=== PATIENT | male | born 1965 | race Caucasian/White ===

== ENCOUNTER → 2023-01-23 12:21 | Outpatient (CLI) | payer OTHER, SELFPAY ==
--- NOTE | ~2023-01-23 | CT_ITS ---
CT scan of the Neck Technique: 2.5 mm axial scans were obtained through the neck after intravenous administration of 75 c c Omnipaque 350. Coronal and sagittal reconstructions of the neck were obtained. Dose reduction techn ique was used on this scan by utilizing automated exposure control and iterative reconstruction techn ique. The dose-length product (DLP) was 482.70 mGy-cm. Clinical History: Left neck mass Findings: There is somewhat ill-defined masslike enlargement of the left palatine tonsil, measuring approximate ly 2.5 x 1.1 x 2.5 cm. There is associated left cervical lymphadenopathy, predominantly level 2, with largest node measuring 1.9 x 2.0 x 3.3 cm. There are additional enlarged, centrally hypodense lymph nodes, both superiorly (axial image 49), and slightly posterior/inferior (axial image 56), which coul d reflect centrally necrotic lymph nodes. Parotid and submandibular glands are unremarkable. Parapharyngeal fat is preserved bilaterally. The thyroid gland appears normal. Images of the lung apices reveal no abnormalities. Impression: Left palatine tonsillar mass measuring approximately 2.5 x 1.1 x 2.5 cm. This is suspicious for malig matthew. Left cervical lymphadenopathy, predominantly level 2, as detailed above, suspicious for metastatic ly mphadenopathy. Consider tissue sampling to establish a histologic diagnosis. PET CT should also be considered to janes luate for any smaller hypermetabolic lymph nodes, if this will affect management. Reviewed, dictated and finalized at [facility]. Impression: Left palatine tonsillar mass measuring approximately 2.5 x 1.1 x 2.5 cm. This i s suspicious for malignancy. Left cervical lymphadenopathy, predominantly level 2, as detailed above, suspic ious for metastatic lymphadenopathy. Consider tissue sampling to establish a histologic diagnosis. PET CT should als o be considered to evaluate for any smaller hypermetabolic lymph nodes, if this will affect management.
== END ==
PROVIDERS: PCP Internal Medicine; Visit Provider Internal Medicine
DX: R22.1 Localized swelling, mass and lump, neck (principal)
CPT/HCPCS: 70491; Q9967

== ENCOUNTER 2023-03-07 12:37 | Outpatient (CLI) | payer OTHER, SELFPAY ==
[2023-03-07 12:51] LABS: Basophils Absolute Auto 0.1 K/mm3 (0.0-0.1); Basophils Percent Auto 0.8 % (0.2-1.2); Eosinophils Absolute Auto 0.3 K/mm3 (0-0.3); Eosinophils Percent Auto 3.1 % (0-4.4); Hematocrit 47.4 % (42.0-52.0); Hemoglobin 15.8 g/dL (14.0-18.0); Immature Granulocyte Absolute 0.02 K/mm3 (0.00-0.031); Immature Granulocyte Percent A 0.2 % (0-0.5); Lymphocytes Percent Auto 19.8 % (18.3-44.2); Mean Corpuscular HGB Conc 33.3 g/dl (32-36); Mean Platelet Volume 10.1 fl (7.4-10.4); Monocytes Absolute Auto 0.6 K/mm3 (0.1-0.6); Monocytes Percent Auto 7.2 % (2.6-8.5); Neutrophils Absolute Auto 5.9 K/mm3 (1.3-6.7); Neutrophils Percent Auto 68.9 % (45.5-73.1); Platelet Count Result 225 k/mm3 (150-375); Red Blood Count 4.94 M/mm3 (4.6-6.20); Red Cell Distribution Width 11.2 % (11.5-14.5); White Blood Count 8.6 K/mm3 (4.5-10.0)
[2023-03-07 13:39] LABS: Alanine Aminotransferase 22 U/L (6-50); Albumin Level 4.4 g/dL (3.5-5.1); Alkaline Phosphatase 119 U/L (38-126); Anion Gap 2 mmol/L (8-16); Aspartate Amino Transferase 27 U/L (17-59); Bilirubin,Total 0.8 mg/dL (0.2-1.3); Blood Urea Nitrogen 10 mg/dL (9-20); Calcium 9.5 mg/dL (8.4-10.2); Carbon Dioxide 27 mmol/L (22-30); Chloride 106 mmol/L (98-107); Estimated Glomerular Filt Rate > 60; Glucose 100 mg/dL (65-110); Potassium 4.2 mmol/L (3.4-5.0); Sodium 135 mmol/L (137-145)
== END 2023-03-07 12:38 | disposition home or self-care (01) ==
LOC: ANHLAB 12:39
PROVIDERS: PCP Internal Medicine; Visit Provider Internal Medicine Hematology & Oncology
DX: C09.9 Malignant neoplasm of tonsil, unspecified (principal)
CPT/HCPCS: 36415; 80053; 85025

== ENCOUNTER 2023-03-21 08:01 | Outpatient (CLI) | payer OTHER, SELFPAY ==
--- NOTE | ~2023-03-21 | PE_ITS ---
EXAMINATION: PET skull to mid thigh DATE: 03/21/2023 10:07 INDICATION: Neoplasm of uncertain behavior of the tonsil TECHNIQUE: Blood glucose level was 106 mg/dL. 7.446 mCi of 18-fluorodeoxyglucose (18-FDG) was adminis tered i.v. Low dose computed tomography (CT) images were acquired from the base of the brain to the p roximal thighs for attenuation correction and anatomic localization. Positron emission tomography (PE T) images were acquired in the same distribution beginning 56 minutes after injection. Images includi ng fused PET/CT images were reconstructed in axial, coronal, and sagittal planes. Automated exposure control technique was employed. The dose-length product was 553.97mGy-cm. COMPARISON: Neck CT dated 01/23/2023 FINDINGS: Head/neck: There is asymmetric nodular thickening of the and posterolateral left pharyngeal wall in the region o f the left palatine tonsil with corresponding increased FDG uptake with maximal SUV of 11.9 concernin g for malignancy. There are 3 enlarged FDG avid level 2 jugular lymph nodes, the most caudal measurin g 2.1 x 2.1 mm with maximal SUV of 13.1. The 2 more cephalad enlarged lymph nodes with lower degree o f peripheral FDG uptake located posterior to the angle of the mandible which measure 2.6 x 1.6 cm wit h maximal SUV of 11.1 and 2.4 x 1.6 cm with maximal SUV of 5.1. There is decreased attenuation centra lly where there is significantly less FDG uptake likely reflecting central necrosis. Chest: Subtle approximately 1 cm focus of groundglass opacity in the apical segment of the left upper lobe w ith nearly indiscernible FDG activity. Large pneumatocele at the base of the left lower lobe. No othe r suspicious pulmonary nodules, pulmonary edema or pleural effusion. Heart size is normal. No pericar dial effusion. Thoracic aorta is normal in caliber. No pathologically enlarged or FDG avid thoracic l ymphadenopathy. Abdomen/pelvis/proximal thighs: Physiologic renal accumulation and excretion of FDG activity in the kidneys, bladder and along portio ns of ureters. 3.7 cm exophytic cyst at the posterior left kidney. Diffuse bladder wall thickening. M ild prostatomegaly. Normal degree and heterogenous pattern of increased uptake throughout the liver w ithout radiologic correlate or dominant FDG avid lesion. The gallbladder, pancreas, spleen and bilate ral adrenal glands are normal. Mild uptake scattered throughout the bowels without radiologic correla te, also likely physiologic. No other abnormal foci of increased FDG uptake or pathologically enlarge d lymphadenopathy in the abdomen, pelvis or proximal thighs. Musculoskeletal: Sclerotic bone islands without FDG uptake at L2 and at the left posterior iliac spine. L4 superior en dplate compression fracture. No other suspicious lytic, blastic or FDG avid bone lesions. IMPRESSION: 1. FDG avid asymmetric soft tissue thickening at the left posterolateral pharyngeal wall in the regio n of the palatine tonsil suspicious for primary malignancy. 2. Three enlarged and FDG avid likely metastatic level 2 left jugular chain lymph nodes, 2 with sugge stion of central necrosis. 3. No other evident metastatic disease in the chest, abdomen or pelvis. 4. Indeterminate 1 cm round glass opacity at the left apex without significant increased FDG activity is most likely infectious/inflammatory in etiology although would recommend 3 month follow-up noncon trast chest CT. 5. Diffuse mild bladder wall thickening which could be due to chronic outlet obstruction from the mil dly enlarged prostate or due to cystitis either acute or chronic. Correlate with urinalysis. Reviewed, dictated and finalized at location [facility]. IMPRESSION: 1. FDG avid asymmetric soft tissue thickening at the left posterolateral pharyn geal wall in the region of the
[2023-03-21 08:31] LABS: Glucose Point of Care 106 mg/dl (65-105)
== END 2023-03-21 08:02 | disposition home or self-care (01) ==
PROVIDERS: PCP Internal Medicine; Visit Provider Otolaryngology
DX: D37.05 Neoplasm of uncertain behavior of pharynx (principal)
CPT/HCPCS: 78815; A9552

== ENCOUNTER 2023-05-07 10:18 | Observation (INO) | payer OTHER, SELFPAY ==
[2023-05-07] VITALS (11 sets, daily range): BP systolic 141–155; BP diastolic 86–106; PULSE 62–95; RESP 15–20; TEMP 36.1–37.1; O2SAT 96–99; BMI 21.3
--- NOTE | ~2023-05-07 | CT_ITS ---
EXAMINATION: CT soft tissue neck wo con DATE: 05/07/2023 14:15 INDICATION: Dysphagia. TECHNIQUE: Computed tomography (CT) of the neck was performed without intravenous contrast. Automated exposure control and iterative reconstruction technique were employed. The dose-length product was 6 05.37 mGy-cm. COMPARISON: CT neck 01/23/2023 FINDINGS: Again seen is a small groundglass opacity in right upper lobe. Again seen is a small ground glass opacity in left upper lobe. Again seen are nodules in right upper lobe measuring up to 4 mm. Th corbin findings are likely benign. There are calcifications in the palatine tonsils. Again seen is left high internal jugular chain lymphadenopathy. For example, a left internal jugular chain node measures 14 x 15 mm, decreased from 20 x 20 mm on 01/23/2023. There are nodules in the thyroid measuring up to 12 mm, likely not clinically significant. There is mild mucosal thickening in the paranasal sinuses. There is mild cervical spondylosis. There is mild chronic height loss of multiple vertebral bodies. IMPRESSION: 1. Left internal jugular chain lymphadenopathy with interval improvement, consistent with metastatic disease. Reviewed, dictated and finalized at location [facility]. IMPRESSION: 1. Left internal jugular chain lymphadenopathy with interval improvement, consi stent with metastatic disease.
[2023-05-07 11:15] LABS: Basophils Percent Auto 0.7 % (0.2-1.2); Eosinophils Absolute Auto 0.1 K/mm3 (0-0.3); Hematocrit 49.9 % (42.0-52.0); Hemoglobin 15.5 g/dL (14.0-18.0); Immature Granulocyte Absolute 0.02 K/mm3 (0.00-0.031); Immature Granulocyte Percent A 0.3 % (0-0.5); Lymphocytes Absolute Auto 0.38 K/mm3 (0.9-3.2); Lymphocytes Percent Auto 6.4 % (18.3-44.2); Mean Corpuscular HGB Conc 31.1 g/dl (32-36); Mean Corpuscular Hemoglobin 31.1 pg (26-34); Mean Corpuscular Volume 100.2 fl (80-100); Mean Platelet Volume 11.3 fl (7.4-10.4); Monocytes Absolute Auto 0.7 K/mm3 (0.1-0.6); Monocytes Percent Auto 10.9 % (2.6-8.5); Neutrophils Absolute Auto 4.8 K/mm3 (1.3-6.7); Neutrophils Percent Auto 79.7 % (45.5-73.1); Platelet Count Result 146 k/mm3 (150-375); Red Blood Count 4.98 M/mm3 (4.6-6.20); Red Cell Distribution Width 11.7 % (11.5-14.5)
[2023-05-07 11:27] LABS: Alanine Aminotransferase 70 U/L (6-50); Albumin Level 4.5 g/dL (3.5-5.1); Alkaline Phosphatase 120 U/L (38-126); Anion Gap 14 mmol/L (8-16); Aspartate Amino Transferase 34 U/L (17-59); Bilirubin,Total 0.5 mg/dL (0.2-1.3); Blood Urea Nitrogen 69 mg/dL (9-20); Calcium 9.9 mg/dL (8.4-10.2); Carbon Dioxide 22 mmol/L (22-30); Chloride 117 mmol/L (98-107); Estimated CRCL calculation 24 ml/min; Estimated Glomerular Filt Rate 22; Glucose 98 mg/dL (65-110); Lipase 155 U/L (23-300); Sodium 153 mmol/L (137-145)
--- NOTE | 2023-05-07 12:22 | ED.GENADULT ---
HPI - General Adult General Chief complaint: Unspecified Stated complaint: unable to eat and drink (chemo pt) Time Seen by Provider: 05/07/23 12:01 History of Present Illness HPI narrative: Patient is a 57-year-old male with a history of head and neck cancer undergoing chemo and radiation presenting with poor oral intake. Patient states that he has been unable to eat or drink anything for some time now. States that he has had 19 of 35 radiation treatments. States that he has been increasingly weak and intermittently nauseated. He is unable to take ODT Zofran as he does not have enough saliva to dissolve it. Patient states that he went to the infusion center yesterday for a liter of fluids but he continues to struggle with p.o. intake. He denies any new pain or infectious symptoms. Related Data Home Medications Medication Instructions Recorded Confirmed albuterol sulfate 90 mcg/actuation 2 puff inhalation QID PRN Wheezing 03/15/23 05/07/23 aerosol inhaler (ProAir HFA) budesonide-formoterol HFA 160 2 puff inhalation Q12H 03/15/23 05/07/23 mcg-4.5 mcg/actuation aerosol inhaler (Symbicort) Allergies Allergy/AdvReac Type Severity Reaction Status Date / Time No Known Allergies Allergy Verified 05/07/23 16:20 Review of Systems Review of Systems: All systems reviewed & are unremarkable except as noted in HPI and below PMFSH Past Medical History Medical History (Updated 05/08/23 @ 13:01 by Chelsey Hall MD) Anorexia Asthma Social History Social History (Updated 05/07/23 @ 21:10 by Verónica Gagnon APRN) Social History: Currently lives at home alone. Surrogate decision maker - brother, Tye Spears. Smoking status: Never smoker Smokeless tobacco user: chewing tobacco Second hand tobacco smoke exposure: Yes Additional smoking assessment comments: Chewing Tobacco - 40+ Yrs, cessation last week as of 05/07/23 Alcohol intake: former Substance use: never Lack of Transportation: No Lack of Food: Never True Current Housing: I Have Housing Concerned About Future Housing: No Difficulty Paying Gas/Electric Bills: No Difficulty Paying for Meds: No Currently Unemployed: No Education: High School Diploma/GED Difficulty w/ Childcare or Family Care: No Living arrangements: alone Spiritual care concerns: No Exam Narrative: GENERAL: Nontoxic and in no acute distress. Pleasant and cooperative HEAD: Normocephalic, atraumatic. EYES: PERRLA and EOMI. ENT: Nares clear, no rhinorrhea or epistaxis. Mucous membranes dry NECK: Supple. CHEST: Clear to auscultation. No respiratory distress. HEART: Regular rate and rhythm ABDOMEN: Soft, nontender, nondistended EXTREMITIES: Normal range of motion. No edema. SKIN: Warm, dry, no rash. NEURO: No focal deficits. Alert and oriented x3. PSYCH: Normal mood and affect. Course Vital Signs Vital signs: Vital Signs Temperature 98.1 F 05/07/23 10:48 Pulse Rate 95 05/07/23 10:48 Respiratory Rate 18 05/07/23 10:48 Blood Pressure 147/106 H 05/07/23 10:48 Pulse Oximetry 96 05/07/23 10:48 Oxygen Delivery Room Air 05/07/23 10:48 Temperature 97.4 F L 05/08/23 06:00 Pulse Rate 65 05/08/23 10:47 Respiratory Rate 16 05/08/23 10:47 Blood Pressure 158/83 H 05/08/23 06:00 Pulse Oximetry 97 05/08/23 06:00 Oxygen Delivery Room Air 05/07/23 20:00 Medical Decision Making [facility] Narrative Medical decision making narrative: Patient is a 57-year-old male presenting with poor oral intake. Vital stable. Exam remarkable for the above. Blood work concerning for CIARAN with elevated BUN/creatinine. 3 L of fluids have been ordered. Patient requires admission for IV hydration as well as possible PEG tube given his inability to eat or drink. Spoke with the hospitalist who is excepted him for admission. Hospitalist requested soft tissue neck which was obtained which shows no worsening metastatic disease. It actua
[2023-05-07] MEDS: ONDANSETRON INJ 4 MG/2 ML VIAL IV PUSH (12:44)
[2023-05-07] MEDS: SODIUM CHLORIDE 0.9% IV 1,000 ML 999 ML IV CONT ×3 (12:44→13:28)
--- NOTE | 2023-05-07 15:51 | ADMGEN ---
This patient, Claude Spears, was admitted to Medical Room 247-. Patient/family oriented to hospital policies and general routines including ID bracelet, bed and alarms, visiting hours, pain management, procedures, bathroom and other care routines, personal items, smoking policy, room service/diet, and visiting hours. Information on how to activate the Rapid Response Team has been discussed. Patient/Family are encouraged to report perceived risks to care and to ask questions if they do not understand what they are told or what they should do.
[2023-05-07] MEDS: DEXTROSE 5%/LACTATED RINGERS 1,000 ML 100 ML IV CONT (20:41)
--- NOTE | 2023-05-07 20:50 | PM.IMHP ---
H&P: HPI History of Present Illness Date/Time: 05/07/23 20:50 Chief Complaint: Nausea, Vomiting, Sore Throat Narrative: 57 y/o M presents here with N/V, sore throat, and decreased PO intake with PMH of tonsillar cancer, currently receiving chemo/radiation, and asthma. Patient presents here with decreased appetite, sore throat, nausea, vomiting, and poor PO intake. Symptoms associated with radiation treatments. Appetite and sore throat have been declining since radiation treatments initiated. Currently on radiation treatments and 2/3 chemo treatments. However, in the last week patient has been unable to eat or drink due to pain and dysphagia secondary to dryness. 15 lbs of weight loss in the last week. Decreased taste. Last bowel movement was 5-6 days ago. Patient was seen by Dr. Richards on 05/06 where it was recommended he be seen/treated in-patient and to facilitate PEG placement for duration of radiation treatments. He denies SOB, focal neurological deficits, or abdominal pain. Review of Systems Review of Systems: All systems reviewed & are unremarkable except as noted in HPI and below PMFSH Past Medical History Medical History (Updated 05/07/23 @ 21:11 by Verónica Gagnon APRN) Anorexia Asthma Social History Social History (Updated 05/07/23 @ 21:10 by Verónica Gagnon APRN) Social History: Currently lives at home alone. Surrogate decision maker - brother, Tye Spears. Smoking status: Never smoker Smokeless tobacco user: chewing tobacco Second hand tobacco smoke exposure: Yes Additional smoking assessment comments: Chewing Tobacco - 40+ Yrs, cessation last week as of 05/07/23 Alcohol intake: former Substance use: never Lack of Transportation: No Lack of Food: Never True Current Housing: I Have Housing Concerned About Future Housing: No Difficulty Paying Gas/Electric Bills: No Difficulty Paying for Meds: No Currently Unemployed: No Education: High School Diploma/GED Difficulty w/ Childcare or Family Care: No Living arrangements: alone Spiritual care concerns: No Meds Home Medications and Allergies Home Medications Medication Instructions Recorded Confirmed Type albuterol sulfate 90 mcg/actuation 2 puff inhalation QID PRN Wheezing 03/15/23 05/07/23 History aerosol inhaler (ProAir HFA) budesonide-formoterol HFA 160 2 puff inhalation Q12H 03/15/23 05/07/23 History mcg-4.5 mcg/actuation aerosol inhaler (Symbicort) Allergies Allergy/AdvReac Type Severity Reaction Status Date / Time No Known Allergies Allergy Verified 05/07/23 16:20 Vital Signs Vital Signs - 24 hr 05/07/23 10:48 05/07/23 14:01 05/07/23 14:17 Temperature 98.1 F Pulse Rate 95 77 74 Respiratory Rate 18 17 19 Blood Pressure 147/106 H 155/101 H Pulse Oximetry 96 Oxygen Delivery Room Air 05/07/23 14:31 05/07/23 13:30 05/07/23 14:31 Temperature 97.0 F L Pulse Rate 72 73 74 Respiratory Rate 18 18 Blood Pressure 141/96 H 141/96 H Pulse Oximetry 98 Oxygen Delivery 05/07/23 15:01 05/07/23 15:16 05/07/23 15:31 Temperature 98.0 F 98.0 F Pulse Rate 79 78 80 Respiratory Rate 15 15 16 Blood Pressure 147/94 H 144/95 H Pulse Oximetry 98 Oxygen Delivery 05/07/23 15:50 05/07/23 15:45 Temperature 98.1 F Pulse Rate 62 Respiratory Rate 16 Blood Pressure 155/95 H Pulse Oximetry 99 Oxygen Delivery Room Air Exam Const: General: comfortable and no acute distress HENMT: Mouth: Yes dry mucous membranes Other: Oropharyngeal mucositis present.? Eyes: General: appearance normal, both eyes and all related structures Sclera: sclerae normal Pupils: Equal, round and reactive pupils present EOM: EOMs intact bilaterally Neck: Neck: supple Other: +erythema to neck, no swelling/edema. Resp: Effort & Inspection: normal respiratory effort Auscultation: clear to auscultation bilaterally Cardio: Rate: regular rate Rhythm: regul
[2023-05-08] VITALS (12 sets, daily range): BP systolic 139–177; BP diastolic 83–105; PULSE 48–77; RESP 16–22; TEMP 36.3–36.8; O2SAT 96–100; BMI 21.3
[2023-05-08 02:08] LABS: Glucose Point of Care 113 mg/dl (65-105)
[2023-05-08 05:46] LABS: Glucose Point of Care 128 mg/dl (65-105)
[2023-05-08 06:00] LABS: Alanine Aminotransferase 51 U/L (6-50); Albumin Level 3.6 g/dL (3.5-5.1); Alkaline Phosphatase 89 U/L (38-126); Anion Gap 4 mmol/L (8-16); Aspartate Amino Transferase 26 U/L (17-59); Bilirubin,Total 0.4 mg/dL (0.2-1.3); Blood Urea Nitrogen 48 mg/dL (9-20); Calcium 9.1 mg/dL (8.4-10.2); Carbon Dioxide 26 mmol/L (22-30); Chloride 121 mmol/L (98-107); Estimated CRCL calculation 33 ml/min; Estimated Glomerular Filt Rate 33; Glucose 124 mg/dL (65-110); Sodium 151 mmol/L (137-145)
[2023-05-08] MEDS: DEXTROSE 5%/LACTATED RINGERS 1,000 ML 100 ML IV CONT ×2 (07:02→20:32)
[2023-05-08 10:07] LABS: INR 1.1; Prothrombin Time 14.1 Seconds (11.1-14.7)
--- NOTE | 2023-05-08 10:38 | WPDGICN ---
Assessment and Plan Assessment and plan (1) Malignant neoplasm of tonsillar fossa: Code(s): C09.0 - Malignant neoplasm of tonsillar fossa Status: Acute Assessment and Plan: he has had cancer of the oropharynx. He has not been able to eat due to soreness in his throat and also very dry mucous membranes. Consequently he is at risk of becoming more malnourished. (2) Inadequate oral intake: Code(s): R63.8 - Other symptoms and signs concerning food and fluid intake Status: Acute Assessment and Plan: Due to inability to eat, we have been asked to insert G-tube. That will be done today. GI Consult Note Consult date/time: 05/08/23 10:38 HPI: Calude Spears is a 57 year old male who was diagnosed with esophageal cancer few months ago. He has been going on her going radiation therapy, having had about 13 treatment so far. Also is undergoing chemotherapy. Unfortunately his swallowing has gotten more difficult. He states that his mouth is very dry for the last week or so has had a very sore throat. Because of his inability to swallow and he now weight loss we are asked to see him regarding placement of a percutaneous gastrostomy tube. Review of Systems Review of Systems: All systems reviewed & are unremarkable except as noted in HPI and below PMFSH Past Medical History Medical History Anorexia Asthma Social History Social History Social History: Currently lives at home alone. Surrogate decision maker - brother, Tye Spears. Smoking status: Never smoker Smokeless tobacco user: chewing tobacco Second hand tobacco smoke exposure: Yes Additional smoking assessment comments: Chewing Tobacco - 40+ Yrs, cessation last week as of 05/07/23 Alcohol intake: former Substance use: never Lack of Transportation: No Lack of Food: Never True Current Housing: I Have Housing Concerned About Future Housing: No Difficulty Paying Gas/Electric Bills: No Difficulty Paying for Meds: No Currently Unemployed: No Education: High School Diploma/GED Difficulty w/ Childcare or Family Care: No Living arrangements: alone Spiritual care concerns: No Meds Home Medications and Allergies Home Medications Medication Instructions Recorded Confirmed Type albuterol sulfate 90 mcg/actuation 2 puff inhalation QID PRN Wheezing 03/15/23 05/07/23 History aerosol inhaler (ProAir HFA) budesonide-formoterol HFA 160 2 puff inhalation Q12H 03/15/23 05/07/23 History mcg-4.5 mcg/actuation aerosol inhaler (Symbicort) Allergies Allergy/AdvReac Type Severity Reaction Status Date / Time No Known Allergies Allergy Verified 05/08/23 13:18 Vital Signs Vital Signs - 24 hr 05/07/23 10:48 05/07/23 14:01 05/07/23 14:17 Temperature 36.7 C Pulse Rate 95 77 74 Respiratory Rate 18 17 19 Blood Pressure 147/106 H 155/101 H Pulse Oximetry 96 Oxygen Delivery Room Air 05/07/23 14:31 05/07/23 13:30 05/07/23 14:31 Temperature 36.1 C L Pulse Rate 72 73 74 Respiratory Rate 18 18 Blood Pressure 141/96 H 141/96 H Pulse Oximetry 98 Oxygen Delivery 05/07/23 15:01 05/07/23 15:16 05/07/23 15:31 Temperature 36.7 C 36.7 C Pulse Rate 79 78 80 Respiratory Rate 15 15 16 Blood Pressure 147/94 H 144/95 H Pulse Oximetry 98 Oxygen Delivery 05/07/23 15:50 05/07/23 15:45 05/07/23 20:00 Temperature 36.7 C Pulse Rate 62 62 Respiratory Rate 16 16 Blood Pressure 155/95 H Pulse Oximetry 99 99 Oxygen Delivery Room Air Room Air 05/07/23 22:31 05/08/23 06:00 Temperature 37.1 C 36.3 C L Pulse Rate 66 57 L Respiratory Rate 20 18 Blood Pressure 154/86 H 158/83 H Pulse Oximetry 99 97 Oxygen Delivery Exam Const: General: alert Orientation/consciousness: patient oriented x3 HENMT: Mouth: Yes dry mucous membranes Resp: Aus
[2023-05-08] MEDS: FLUTICASONE/SALMETEROL 115-21 MCG INHALER 1 PUFF 2 PUFF INHALATION ×2 (10:47→19:35)
[2023-05-08 12:20] LABS: Glucose Point of Care 117 mg/dl (65-105)
--- NOTE | 2023-05-08 12:31 | PM.IMPN ---
Progress Note: A&P Assessment and Plan (1) Anorexia: Code(s): R63.0 - Anorexia Status: Acute Assessment and Plan: Patient presents with 15 lb of weight loss, decreased ability to eat and drink secondary to pain, and dysphagia secondary to dry mucosa. Symptoms secondary to radiation of neck for tonsillar cancer. -chloropeptic spray PRN for sore throat -Zofran PRN IV for nausea -constipation secondary to hypovolemia - docusate and Metamucil ordered -D5LR 100 mL/hr ordered, blood glucose checks Q6H, and hypoglycemia protocols in place. -PEG tube placement 05/08/2023 by GI. Consult dietary. (2) Malignant neoplasm of tonsillar fossa: Code(s): C09.0 - Malignant neoplasm of tonsillar fossa Status: Acute Assessment and Plan: Patient is currently receiving chemo and radiation for his tonsillar cancer. Sees Dr. Bunch and Dr. Cedillo. per their progress notes, requesting evaluation for PEG. -consult GI for evaluation -supportive care for associated symptoms with chemo/radiation (3) CIARAN (acute kidney injury): Code(s): N17.9 - Acute kidney failure, unspecified Status: Acute Assessment and Plan: Patient has been unable to tolerate PO for the last week, endorses nausea and vomiting. Creatinine on 05/01 was 1.0. Now worsened 3.7. BUN currently 69. -creatinine with mild improvement post-resuscitation of 4L IV fluids, continue with maintenance fluids D5/LR 100 mL/hr. -hypernatremic - given 3L of NS in ED, reassess in AM after change in fluids -BUN and creatinine 48/2.1 -mag elevated - monitor -monitor CMP Plan Chronic Conditions -Asthma: continue home medications - albuterol PRN and Advair, Nebs ordered PRN if unable to tolerate home inhaler administration. Diet: clear liquids, NPO at midnight DVT Prophylaxis: SCDs and Lovenox 30 Code Status: Full Code Subjective Date/time seen: 05/08/23 12:31 Interval history: patient continues to have difficulty swallowing and low appetite. Plan for PEG tube placement today. Exam Narrative: GENERAL: Comfortable, no acute distress HENMT: moist mucous membranes EYES: EOM intact b/l NECK: no lymphadenopathy RESPIRATORY: clear to auscultation CARDIO: RRR GI: soft, nontender, bowel sounds present SKIN: no rashes EXTREMITIES: no edema, redness or tenderness Objective Data Vital Signs Vital Signs: Vital Signs - 24 hr 05/07/23 14:01 05/07/23 14:17 05/07/23 14:31 Temperature 97.0 F L Pulse Rate 77 74 72 Respiratory Rate 17 19 18 Blood Pressure 155/101 H 141/96 H Pulse Oximetry 98 Oxygen Delivery 05/07/23 13:30 05/07/23 14:31 05/07/23 15:01 Temperature 98.0 F Pulse Rate 73 74 79 Respiratory Rate 18 15 Blood Pressure 141/96 H 147/94 H Pulse Oximetry Oxygen Delivery 05/07/23 15:16 05/07/23 15:31 05/07/23 15:50 Temperature 98.0 F 98.1 F Pulse Rate 78 80 62 Respiratory Rate 15 16 16 Blood Pressure 144/95 H 155/95 H Pulse Oximetry 98 99 Oxygen Delivery 05/07/23 15:45 05/07/23 20:00 05/07/23 22:31 Temperature 98.8 F Pulse Rate 62 66 Respiratory Rate 16 20 Blood Pressure 154/86 H Pulse Oximetry 99 99 Oxygen Delivery Room Air Room Air 05/08/23 06:00 05/08/23 10:47 Temperature 97.4 F L Pulse Rate 57 L 65 Respiratory Rate 18 16 Blood Pressure 158/83 H Pulse Oximetry 97 Oxygen Delivery Intake/Output Intake/Output: Intake & Output 05/05/23 05/06/23 05/07/23 05/08/23 23:59 23:59 23:59 23:59 Intake Total 3000 1000 Output Total 0 800 Balance 3000 200 Meds/Results Medications: Active Medications Generic Name Dose Route Start Last Admin Trade Name Freq PRN Reason Stop Dose Admin Acetaminophen 500 mg 05/07/23 21:19 Acetaminophen 500 Mg Tablet PO Q4H PRN Mild Pain (1-4) Albuterol 2 puff 05/07/23 19:26 Albuterol Sulfate (*Sp) Aerosol 1 Puff INHALATION QID PRN Wheezing Albuterol 2.5 mg
[2023-05-08] MEDS: ceFAZolin 1 GM/NS 50 ML 1 GM/50 ML BAG IVPB (13:16)
--- NOTE | 2023-05-08 13:20 | PC.NURSE ---
To GI Lab per wheelchair, IV left AC. Report given to Juan David ANGELES.
--- NOTE | 2023-05-08 13:21 | SUR.PREOP ---
Anesthesiologist notified of heart rate of 48.
[2023-05-08] MEDS: LACTATED RINGERS 1,000 ML 150 ML IV CONT (13:24)
--- NOTE | 2023-05-08 14:01 | WPDANESEPPF ---
Anes - Initial Pre Proc Eval Procedure: Operation Date: 05/08/23 15:15 Proposed Procedures p Percutaneous Endoscopic Gastrostomy - Lm Wisdom MD Date/Time: 05/08/23 14:01 Surgeon: Desiree Ribera DO Pre Op Diagnosis: CIARAN/Inability to Tolerate PO Patient Data Age: 57 Gender: M Height: 1.78 m Weight: 67.5 kg Last Vital Signs Temp 36.5 C 05/08/23 13:19 Pulse 48 L 05/08/23 13:19 Resp 16 05/08/23 13:19 BP 159/86 H 05/08/23 13:19 Pulse Ox 100 05/08/23 13:19 O2 Del Method Room Air 05/08/23 13:19 Allergies Allergy/AdvReac Type Severity Reaction Status Date / Time No Known Allergies Allergy Verified 05/08/23 13:18 Home Medications Medication Instructions Recorded Confirmed Type albuterol sulfate 90 mcg/actuation 2 puff inhalation QID PRN Wheezing 03/15/23 05/07/23 History aerosol inhaler (ProAir HFA) budesonide-formoterol HFA 160 2 puff inhalation Q12H 03/15/23 05/07/23 History mcg-4.5 mcg/actuation aerosol inhaler (Symbicort) Laboratory Tests 05/08/23 05/08/23 05/08/23 02:06 05:09 05:33 PT INR Sodium 151 H mmol/L (137-145) Potassium 5.0 mmol/L (3.4-5.0) Chloride 121 H mmol/L (98-107) Carbon Dioxide 26 mmol/L (22-30) Anion Gap 4 L mmol/L (8-16) BUN 48 H D mg/dL (9-20) Creatinine 2.10 H mg/dL (0.7-1.3) Estim Creat Clear Calc 33 ml/min Estimated GFR 33 L (59 - ) Glucose 124 H mg/dL (65-110) POC Capillary Glucose 113 H mg/dl 128 H mg/dl (65-105) (65-105) Calcium 9.1 mg/dL (8.4-10.2) Magnesium 2.0 mg/dL (1.6-2.3) Total Bilirubin 0.4 mg/dL (0.2-1.3) AST 26 U/L (17-59) ALT 51 H U/L (6-50) Alkaline Phosphatase 89 U/L (38-126) Total Protein 6.0 L g/dL (6.3-8.2) Albumin 3.6 g/dL (3.5-5.1) 05/08/23 05/08/23 09:24 11:34 PT 14.1 Seconds (11.1-14.7) INR 1.1 Sodium Potassium Chloride Carbon Dioxide Anion Gap BUN Creatinine Estim Creat Clear Calc Estimated GFR Glucose POC Capillary Glucose 117 H mg/dl (65-105) Calcium Magnesium Total Bilirubin AST ALT Alkaline Phosphatase Total Protein Albumin Patient hx anesthesia problems: none Family hx anesthesia problems: none Results Review: All pre-operative results and documents have been reviewed as part of the pre-operative evaluation. [facility] Past Medical History Medical History Anorexia Asthma Social History Social History Social History: Currently lives at home alone. Surrogate decision maker - brother, Tye Spears. Smoking status: Never smoker Smokeless tobacco user: chewing tobacco Second hand tobacco smoke exposure: Yes Additional smoking assessment comments: Chewing Tobacco - 40+ Yrs, cessation last week as of 05/07/23 Alcohol intake: former Substance use: never Lack of Transportation: No Lack of Food: Never True Current Housing: I Have Housing Concerned About Future Housing: No Difficulty Paying Gas/Electric Bills: No Difficulty Paying for Meds: No Currently Unemployed: No Education: High School Diploma/GED Difficulty w/ Childcare or Family Care: No Living arrangements: alone Spiritual care concerns: No Anes - Eval Final PreProcedure Day of Procedure 05/08/23 14:01 Patient weight: normal Heart: regular rate and rhythm Lungs: decreased breath sounds Airway: Mallampati scale class II Neurological: alert and oriented Last oral intake: >/= 8 hours ASA classification: IV Emergent: no Anesthetic plan: pr
--- NOTE | 2023-05-08 15:20 | PC.NURSE ---
Returned from GI Lab. Report received from GI lab.
[2023-05-08] MEDS: amLODIPine BESYLATE 5 MG TABLET PO (15:57)
[2023-05-08 18:30] LABS: Glucose Point of Care 109 mg/dl (65-105)
[2023-05-09 00:19] LABS: Glucose Point of Care 134 mg/dl (65-105)
[2023-05-09 06:00] VITALS: BP 152/93; PULSE 58; RESP 18; TEMP 37.1; O2SAT 97
[2023-05-09 06:12] LABS: Basophils Absolute Auto 0.1 K/mm3 (0.0-0.1); Basophils Percent Auto 0.7 % (0.2-1.2); Eosinophils Absolute Auto 0.2 K/mm3 (0-0.3); Eosinophils Percent Auto 2.2 % (0-4.4); Hematocrit 41.3 % (42.0-52.0); Hemoglobin 13.1 g/dL (14.0-18.0); Immature Granulocyte Absolute 0.04 K/mm3 (0.00-0.031); Immature Granulocyte Percent A 0.6 % (0-0.5); Immature Platelet Fraction Pct 6.3 % (0.9-11.2); Lymphocytes Absolute Auto 0.41 K/mm3 (0.9-3.2); Lymphocytes Percent Auto 5.9 % (18.3-44.2); Mean Corpuscular HGB Conc 31.7 g/dl (32-36); Mean Corpuscular Volume 100.7 fl (80-100); Mean Platelet Volume 11.7 fl (7.4-10.4); Monocytes Absolute Auto 0.7 K/mm3 (0.1-0.6); Monocytes Percent Auto 9.9 % (2.6-8.5); Neutrophils Absolute Auto 5.6 K/mm3 (1.3-6.7); Neutrophils Percent Auto 80.7 % (45.5-73.1); Platelet Count Result 92 k/mm3 (150-375); Red Cell Distribution Width 11.6 % (11.5-14.5)
[2023-05-09 06:24] LABS: Alanine Aminotransferase 43 U/L (6-50); Albumin Level 3.4 g/dL (3.5-5.1); Alkaline Phosphatase 88 U/L (38-126); Anion Gap 4 mmol/L (8-16); Aspartate Amino Transferase 24 U/L (17-59); Bilirubin,Total 0.5 mg/dL (0.2-1.3); Blood Urea Nitrogen 27 mg/dL (9-20); Calcium 8.8 mg/dL (8.4-10.2); Carbon Dioxide 31 mmol/L (22-30); Chloride 115 mmol/L (98-107); Estimated CRCL calculation 41 ml/min; Estimated Glomerular Filt Rate 42; Glucose 134 mg/dL (65-110); Potassium 3.8 mmol/L (3.4-5.0); Sodium 150 mmol/L (137-145)
[2023-05-09 06:45] LABS: Glucose Point of Care 133 mg/dl (65-105)
--- NOTE | 2023-05-09 07:22 | PM.IMPN ---
Progress Note: A&P Assessment and Plan (1) Anorexia: Code(s): R63.0 - Anorexia Status: Acute Assessment and Plan: Patient presents with 15 lb of weight loss, decreased ability to eat and drink secondary to pain, and dysphagia secondary to dry mucosa. Symptoms secondary to radiation of neck for tonsillar cancer. -chloropeptic spray PRN for sore throat -Zofran PRN IV for nausea -constipation secondary to hypovolemia - docusate and Metamucil ordered -D5LR 100 mL/hr ordered, blood glucose checks Q6H, and hypoglycemia protocols in place. -PEG tube placement 05/08/2023 by GI. Consult dietary. (2) Malignant neoplasm of tonsillar fossa: Code(s): C09.0 - Malignant neoplasm of tonsillar fossa Status: Acute Assessment and Plan: Patient is currently receiving chemo and radiation for his tonsillar cancer. Sees Dr. Bunch and Dr. Cedillo. per their progress notes, requesting evaluation for PEG. -consult GI for evaluation -supportive care for associated symptoms with chemo/radiation (3) CIARAN (acute kidney injury): Code(s): N17.9 - Acute kidney failure, unspecified Status: Acute Assessment and Plan: Patient has been unable to tolerate PO for the last week, endorses nausea and vomiting. Creatinine on 05/01 was 1.0. Now worsened 3.7. BUN currently 69. -creatinine with mild improvement post-resuscitation of 4L IV fluids, continue with maintenance fluids D5/LR 100 mL/hr. -hypernatremic - given 3L of NS in ED, reassess in AM after change in fluids -BUN and creatinine 27/1.7 -mag elevated - monitor -monitor CMP (4) Severe protein-calorie malnutrition: Code(s): E43 - Unspecified severe protein-calorie malnutrition Status: Acute Assessment and Plan: dietitian assess patient and concluded severe protein calorie malnutrition related to inadequate protein energy intake and increase NG knees in setting of chronic disease (cancer). PEG tube placement 05/08/2023. Tube feeding recommendations: Jevity 1.5 at 65 mL an hour goal rate providing 2145 kcal/86 g protein/1087 mL water. Flush 100 mL q.4 hours. Bolus feedings: Jevity 350 mL bolus 4 times a day ( 2100 kcals/ 89 g protein/ 1064 mL water. Flush 100 mL with feedings. Plan Chronic Conditions -Asthma: continue home medications - albuterol PRN and Advair, Nebs ordered PRN if unable to tolerate home inhaler administration. Diet: clear liquids, NPO at midnight DVT Prophylaxis: SCDs and Lovenox 30 Code Status: Full Code Subjective Date/time seen: 05/09/23 07:22 Exam Narrative: GENERAL: Comfortable, no acute distress HENMT: moist mucous membranes EYES: EOM intact b/l NECK: no lymphadenopathy RESPIRATORY: clear to auscultation CARDIO: RRR GI: soft, nontender, bowel sounds present SKIN: no rashes EXTREMITIES: no edema, redness or tenderness Objective Data Vital Signs Vital Signs: Vital Signs - 24 hr 05/08/23 10:47 05/08/23 13:19 05/08/23 14:41 Temperature 97.7 F Pulse Rate 65 48 L 77 Respiratory Rate 16 16 22 H Blood Pressure 159/86 H 170/105 H Pulse Oximetry 100 97 Oxygen Delivery Room Air Room Air 05/08/23 14:51 05/08/23 15:01 05/08/23 15:22 Temperature 97.5 F L Pulse Rate 58 L 57 L 52 L Respiratory Rate 20 20 16 Blood Pressure 162/99 H 139/98 H 176/87 H Pulse Oximetry 96 98 98 Oxygen Delivery Room Air Room Air 05/08/23 15:56 05/08/23 16:07 05/08/23 16:57 Temperature 98.3 F Pulse Rate 50 L 55 L Respiratory Rate 16 Blood Pressure 177/90 H 169/86 H Pulse Oximetry 99 Oxygen Delivery Room Air 05/08/23 19:23 05/08/23 19:37 05/08/23 20:00 Temperature 97.9 F Pulse Rate 53 L 56 L Respiratory Rate 18 16 Blood Pressure 169/97 H Pulse Oximetry 96 Oxygen Delivery Room Air 05/08/23 21:18 05/09/23 06:00 Temperature 98.7 F Pulse Rate 58 L Respiratory Rate 18 Blood Pressure 152/93 H Pulse Oximetry 96 97 Oxygen Deliver
[2023-05-09] MEDS: PSYLLIUM POWDER PACKET 1 PACKET PO (09:32)
[2023-05-09] MEDS: amLODIPine BESYLATE 5 MG TABLET PO (09:33)
--- NOTE | 2023-05-09 11:48 | P.PNAN_ITS ---
Anes - Prog Note Post-Op Date/Time: 05/09/23 11:48 Cardiovascular status: other (HTN) Respiratory status: normal Airway patency: baseline Mental status: baseline Post-Op hydration status: normal Vital Signs: Last Vital Signs Temp 37.1 C 05/09/23 06:00 Pulse 58 L 05/09/23 06:00 Resp 18 05/09/23 06:00 BP 152/93 H 05/09/23 06:00 Pulse Ox 97 05/09/23 06:00 O2 Del Method Room Air 05/09/23 08:00 Pain Score (VAS): 310 I/O: Intake & Output 05/08/23 05/09/23 05/09/23 23:59 07:59 15:59 Intake Total 1120 0 Output Total 1100 1150 Balance 20 -1150 0 Laboratory Tests 05/09/23 05:28 05/09/23 05:28 05/08/23 05/08/23 05/09/23 11:34 18:27 00:16 WBC RBC Hgb Hct MCV MCH MCHC RDW Plt Count MPV Immature Gran % (Auto) Neut % (Auto) Lymph % (Auto) [place] % (Auto) Eos % (Auto) Baso % (Auto) Lymph # (Auto) [place] # (Auto) Eos # (Auto) Baso # (Auto) Abs Immat Gran (auto) Absolute Neuts (auto) Absolute Nucleated RBC Nucleated RBC % % Immature Plt Fraction Sodium Potassium Chloride Carbon Dioxide Anion Gap BUN Creatinine Estim Creat Clear Calc Estimated GFR Glucose POC Capillary Glucose 117 H 109 H 134 H Calcium Total Bilirubin AST ALT Alkaline Phosphatase Total Protein Albumin 05/09/23 05/09/23 05:28 06:08 WBC 7.0 RBC 4.10 L Hgb 13.1 L Hct 41.3 L MCV 100.7 H MCH 32.0 MCHC 31.7 L RDW 11.6 Plt Count 92 L MPV 11.7 H Immature Gran % (Auto) 0.6 H Neut % (Auto) 80.7 H Lymph % (Auto) 5.9 L [place] % (Auto) 9.9 H Eos % (Auto) 2.2 Baso % (Auto) 0.7 Lymph # (Auto) 0.41 L [place] # (Auto) 0.7 H Eos # (Auto) 0.2 Baso # (Auto) 0.1 Abs Immat Gran (auto) 0.04 H Absolute Neuts (auto) 5.6 Absolute Nucleated RBC 0.0 Nucleated RBC % 0.0 % Immature Plt Fraction 6.3 Sodium 150 H Potassium 3.8 Chloride 115 H Carbon Dioxide 31 H Anion Gap 4 L BUN 27 H D Creatinine 1.70 H Estim Creat Clear Calc 41 Estimated GFR 42 L Glucose 134 H POC Capillary Glucose 133 H Calcium 8.8 Total Bilirubin 0.5 AST 24 ALT 43 Alkaline Phosphatase 88 Total Protein 6.0 L Albumin 3.4 L Post-procedural complaints: none Patient Feedback: Patient satisfied with anesthetic care.
[2023-05-09] MEDS: LACTATED RINGERS 1,000 ML 100 ML IV CONT (12:02)
[2023-05-09 12:31] LABS: Glucose Point of Care 121 mg/dl (65-105)
--- NOTE | 2023-05-09 13:39 | PC.NURSE ---
On 05/09/23, the student, [Helen Molina], provided care and completed [facility] documentation on this patient. I have reviewed the student's documentation and agree with the findings.
[2023-05-09 14:00] VITALS: BP 134/90; PULSE 77; RESP 18; TEMP 36.7; O2SAT 97
--- NOTE | 2023-05-09 14:39 | PM.DS ---
DS: Admitting Diagnosis Discharge Date 05/09/23 Admitting Diagnosis Dysphagia DS: Discharge Diagnosis Discharge Diagnosis (1) Anorexia: Code(s): R63.0 - Anorexia Status: Acute (2) Malignant neoplasm of tonsillar fossa: Code(s): C09.0 - Malignant neoplasm of tonsillar fossa Status: Acute (3) CIARAN (acute kidney injury): Code(s): N17.9 - Acute kidney failure, unspecified Status: Acute (4) Severe protein-calorie malnutrition: Code(s): E43 - Unspecified severe protein-calorie malnutrition Status: Acute DS: Summary Hospital Course Hospital Course: This is a 57-year-old patient with a past medical history of tonsillar cancer receiving chemo radiation that presented to the ED due to decreased appetite, sore throat, nausea, vomiting and poor p.o. intake. Patient has decreased taste, difficulty swallowing and a 15 lb weight loss in 1 week. Patient had discuss this with his oncologist and it was recommended that be be seen in the hospital for a PEG placement. GI consulted. Patient had PEG placed on 05/08/2023. Dietary consulted and recommended feeding regimen. Care coordination consulted to set up home feedings. Patient educated by feeding [employer] and will have home health. Patient tolerated tube feedings well and okay to discharge home on Jevity 350 mL bolus 4 times daily with 100 mL flush with each feeding. Patient did have hypernatremia and CIARAN on presentation but both of this has improved. Would recommend the patient get follow-up labs in 1 week and will order these for the patient. Can follow-up with these labs with either oncologist or PCP. Time Spent with Patient Time attestation: Total time spent providing and/or coordinating discharge services: Exam Narrative: GENERAL: Comfortable, no acute distress HENMT: moist mucous membranes EYES: EOM intact b/l NECK: no lymphadenopathy RESPIRATORY: clear to auscultation CARDIO: RRR GI: soft, nontender, bowel sounds present SKIN: no rashes EXTREMITIES: no edema, redness or tenderness DS: Data Data Completed and Pending Labs on day of discharge: Labs from last 24 hours 05/09/23 05/09/23 05/09/23 12:27 06:08 05:28 WBC 7.0 RBC 4.10 L Hgb 13.1 L Hct 41.3 L MCV 100.7 H MCH 32.0 MCHC 31.7 L RDW 11.6 Plt Count 92 L MPV 11.7 H Immature Gran % (Auto) 0.6 H Neut % (Auto) 80.7 H Lymph % (Auto) 5.9 L [place] % (Auto) 9.9 H Eos % (Auto) 2.2 Baso % (Auto) 0.7 Lymph # (Auto) 0.41 L [place] # (Auto) 0.7 H Eos # (Auto) 0.2 Baso # (Auto) 0.1 Abs Immat Gran (auto) 0.04 H Absolute Neuts (auto) 5.6 Absolute Nucleated RBC 0.0 Nucleated RBC % 0.0 % Immature Plt Fraction 6.3 Sodium 150 H Potassium 3.8 Chloride 115 H Carbon Dioxide 31 H Anion Gap 4 L BUN 27 H D Creatinine 1.70 H Estim Creat Clear Calc 41 Estimated GFR 42 L Glucose 134 H POC Capillary Glucose 121 H 133 H Calcium 8.8 Total Bilirubin 0.5 AST 24 ALT 43 Alkaline Phosphatase 88 Total Protein 6.0 L Albumin 3.4 L 05/09/23 05/08/23 00:16 18:27 WBC RBC Hgb Hct MCV MCH MCHC RDW Plt Count MPV Immature Gran % (Auto) Neut % (Auto) Lymph % (Auto) [place] % (Auto) Eos % (Auto) Baso % (Auto) Lymph # (Auto) [place] # (Auto) Eos # (Auto) Baso # (Auto) Abs Immat Gran (auto) Absolute Neuts (auto) Absolute Nucleated RBC Nucleated RBC % % Immature Plt Fraction Sodium Potassium Chloride Carbon Dioxide Anion Gap BUN Creatinine Estim Creat Clear Calc Estimated GFR Glucose POC Capillary Glucose 134 H 109 H Calcium Total Bilirubin AST ALT Alkaline Phosphatase Total Protein Albumin Discharge Plan Discharge Attending physician on discharge: Rudi Miranda Consulting providers: Lm Wisdom Discharging Clinician: Ming
== END 2023-05-09 17:00 | disposition home health service (06) ==
LOC: ANHED 12:01 → ANH2MED 05-08 04:24
PROVIDERS: Emergency Medicine; Internal Medicine Critical Care Medicine; Internal Medicine Gastroenterology; Student in an Organized Health Care Education/Training Program; Admitting Provider Student in an Organized Health Care Education/Training Program; Emergency Provider Emergency Medicine; PCP Internal Medicine; Visit Provider Hospitalist
PROC: 0DH63UZ Insertion of Feeding Device into Stomach, Percutaneous Approach (ICD-10-PCS; CPT 43246; principal; 2023-05-08 15:15)
DX: K21.00 Gastro-esophageal reflux disease with esophagitis, without bleeding (principal); K29.70 Gastritis, unspecified, without bleeding; K29.80 Duodenitis without bleeding; R63.8 Other symptoms and signs concerning food and fluid intake; C09.0 Malignant neoplasm of tonsillar fossa; N17.9 Acute kidney failure, unspecified; E43 Unspecified severe protein-calorie malnutrition; Z68.21 Body mass index [BMI] 21.0-21.9, adult; J45.909 Unspecified asthma, uncomplicated; R59.0 Localized enlarged lymph nodes; F17.290 Nicotine dependence, other tobacco product, uncomplicated; Z79.60 Long term (current) use of unspecified immunomodulators and immunosuppressants; Z79.51 Long term (current) use of inhaled steroids
CPT/HCPCS: 36415; 43246; 70490; 77386; 80053; 82948; 83690; 83735; 85025; 85055; 85610; 94640; 96361; 96374; 99285; A9270; G0378; J0690; J2405; J2704; J7030; J7120; J7121

== ENCOUNTER 2023-05-30 10:37 | Observation (INO) | payer OTHER, SELFPAY ==
[2023-05-30] VITALS (18 sets, daily range): BP systolic 149–186; BP diastolic 87–111; PULSE 79–111; RESP 12–24; TEMP 36.3–36.8; O2SAT 93–100; BMI 21.2
--- NOTE | ~2023-05-30 | XR_ITS ---
EXAMINATION: XR chest 2V DATE: 05/30/2023 15:43 INDICATION: Cough. TECHNIQUE: Frontal and lateral views of the chest were obtained. COMPARISON: PET/CT 03/21/2023 FINDINGS: There is mild atelectasis in lingula. No pleural effusion or pneumothorax. The heart size i s normal. IMPRESSION: 1. Mild atelectasis in lingula. Reviewed, dictated and finalized at location E.
--- NOTE | ~2023-05-30 | XR_ITS ---
MODIFIED ESOPHAGRAM HISTORY: Dysphagia. TECHNIQUE: Modified barium esophagram was performed on 05/31/2023. I administered fluoroscopy and perf ormed the exam with speech pathologist. Patient was seated for lateral fluoroscopic imaging for keven stion of thin liquids, pudding, solids and quantified amounts, followed by thin liquids in uncontroll ed amounts. This was recorded on tape. A single fluoroscopic spot image was also recorded. The DAP fo r this procedure was 0.647 Gycm2. The amount of fluoroscopy time used during this procedure was 1.0 m inutes. FINDINGS: Oral stage: Adequate function. Pharyngeal stage: Laryngeal penetration without aspiration with small sips of thin liquid consistency . Cervical/esophageal stage: Adequate function. IMPRESSION: Pharyngeal dysphagia with laryngeal penetration without aspiration with small sips of thi n liquids. Please correlate with speech pathologist findings and specific feeding recommendations. Reviewed, dictated and finalized at location A. IMPRESSION: Pharyngeal dysphagia with laryngeal penetration without aspiration with small sips of thin liquids. Please correlate with speech pathologist find ings and specific feeding recommendations.
--- NOTE | ~2023-05-30 | CT_ITS ---
EXAMINATION: CT abdomen pelvis wo con DATE: 05/30/2023 15:48 INDICATION: Nausea and vomiting. Constipation. TECHNIQUE: Computed tomography (CT) of the abdomen and pelvis was performed without intravenous contr ast. Automated exposure control and iterative reconstruction technique were employed. The dose-length product was 306.32 mGy-cm. COMPARISON: PET/CT 03/21/23 FINDINGS: The visualized portions of the lung bases demonstrate minimal atelectasis. There is a pneum atocele in left lower lobe. No pleural effusion. The heart size is normal. No pericardial effusion. T here is a gastrostomy tube in expected position. The liver, gallbladder, spleen, pancreas, adrenal gl ands, and right kidney are normal. There is a 3.4 cm cyst in left kidney. There is a 3 mm stone in th e left kidney. There are no dilated loops of bowel. The appendix is not visualized. There are no path ologically enlarged lymph nodes. There is no free intraperitoneal fluid. There is mild thoracic and l umbar spondylosis. There are a few scattered benign bone islands. There is a chronic compression frac ture of L4. IMPRESSION: 1. No etiology for the patient's symptoms. Reviewed, dictated and finalized at location E.
[2023-05-30 11:43] LABS: Basophils Percent Auto 0.7 % (0.2-1.2); Eosinophils Percent Auto 0.2 % (0-4.4); Hematocrit 43.8 % (42.0-52.0); Hemoglobin 13.4 g/dL (14.0-18.0); Immature Granulocyte Absolute 0.01 K/mm3 (0.00-0.031); Immature Granulocyte Percent A 0.2 % (0-0.5); Lymphocytes Absolute Auto 0.25 K/mm3 (0.9-3.2); Lymphocytes Percent Auto 5.5 % (18.3-44.2); Mean Corpuscular HGB Conc 30.6 g/dl (32-36); Mean Corpuscular Hemoglobin 31.3 pg (26-34); Mean Corpuscular Volume 102.3 fl (80-100); Mean Platelet Volume 11.2 fl (7.4-10.4); Monocytes Absolute Auto 0.4 K/mm3 (0.1-0.6); Monocytes Percent Auto 8.4 % (2.6-8.5); Neutrophils Absolute Auto 3.9 K/mm3 (1.3-6.7); Platelet Count Result 119 k/mm3 (150-375); Red Blood Count 4.28 M/mm3 (4.6-6.20); Red Cell Distribution Width 11.4 % (11.5-14.5); White Blood Count 4.6 K/mm3 (4.5-10.0)
[2023-05-30 11:53] LABS: Alanine Aminotransferase 48 U/L (6-50); Albumin Level 4.6 g/dL (3.5-5.1); Alkaline Phosphatase 138 U/L (38-126); Anion Gap 9 mmol/L (8-16); Aspartate Amino Transferase 25 U/L (17-59); Bilirubin,Total 0.6 mg/dL (0.2-1.3); Blood Urea Nitrogen 67 mg/dL (9-20); Carbon Dioxide 30 mmol/L (22-30); Chloride 111 mmol/L (98-107); Estimated CRCL calculation 24 ml/min; Estimated Glomerular Filt Rate 22; Glucose 98 mg/dL (65-110); Lipase 363 U/L (23-300); Potassium 5.5 mmol/L (3.4-5.0); Sodium 150 mmol/L (137-145)
--- NOTE | 2023-05-30 12:29 | ECG_ITS ---
Measurements Intervals [place] Rate: 87 P: 76 NE: 161 QRS: 0 QRSD: 86 T: 67 QT: 338 QTc: 408 Interpretive Statements SINUS RHYTHM NO PREVIOUS ECG AVAILABLE FOR COMPARISON Electronically Signed On 05-30-2023 12:49:00 CDT by Luigi Pinon M.D.
[2023-05-30 12:59] LABS: Appearance Urine Clear (Clear); Bacteria Urine None Seen /hpf; Bilirubin Urine Negative (Negative); Blood Urine Negative (Negative); Color Urine Yellow (Yellow); Glucose Urine UA Negative (Negative); Ketones Urine Negative (Negative); Leukocyte Esterase Ur Negative LEU/UL (Negative); Nitrate Urine Negative (Negative); Protein Urine 2+ mg/dL (Negative); RBC Urine 0-2 /hpf (0-2); Specific Grav Ur 1.015 (1.001-1.035); Squamous Epithelial Cell Urine Occasional /hpf (Few); Urobilinogen Urine 0.2 mg/dL (<2.0); WBC Urine 0-5 /hpf; pH Urine 5.5 (5.0-9.0)
[2023-05-30 13:02] LABS: Add Urine Microscopic? YES
[2023-05-30] MEDS: SODIUM CHLORIDE 0.9% IV 1,000 ML 999 ML IV CONT ×2 (15:52→20:46)
[2023-05-30] MEDS: ONDANSETRON INJ 4 MG/2 ML VIAL IV PUSH (15:52)
--- NOTE | 2023-05-30 17:34 | ED.NAVMDI ---
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 The patient states last night, he gave himself a feed through his gastric tube and while flushing it vomited aggressively. He has since had multiple episodes of vomiting. He denies bleeding from any source or fevers. He states he is able to pass gas but has not had a bowel movement in several days. Related Data Home Medications Medication Instructions Recorded Confirmed albuterol sulfate 90 mcg/actuation 2 puff inhalation QID PRN Wheezing 03/15/23 05/28/23 aerosol inhaler (ProAir HFA) budesonide-formoterol HFA 160 2 puff inhalation Q12H 03/15/23 05/28/23 mcg-4.5 mcg/actuation aerosol inhaler (Symbicort) Allergies Allergy/AdvReac Type Severity Reaction Status Date / Time No Known Allergies Allergy Verified 05/30/23 10:38 Review of Systems Review of Systems: CONSTITUTIONAL: Denies fever, chills, or sweats. CARDIOVASCULAR: Denies chest pain, palpitations, or edema. RESPIRATORY: Cough productive of thick, clear, nonbloody sputum denies cough or dyspnea. GASTROINTESTINAL: Nausea and vomiting denies abdominal pain, or diarrhea. GENITOURINARY: Denies dysuria or hematuria. SKIN: Denies rash or itching. MUSCULOSKELETAL: Denies back pain, joint pain, or myalgia. NEUROLOGIC: Denies headache, numbness, dizziness, or weakness. PSYCHIATRIC: Denies anxiety or depression. [facility] Past Medical History Medical History Anorexia Asthma Social History Social History Social History: Currently lives at home alone. Surrogate decision maker - brother, Tye Spears. Smoking status: Never smoker Smokeless tobacco user: chewing tobacco Second hand tobacco smoke exposure: Yes Additional smoking assessment comments: Chewing Tobacco - 40+ Yrs, cessation last week as of 05/07/23 Alcohol intake: former Substance use: never Lack of Transportation: No Lack of Food: Never True Current Housing: I Have Housing Concerned About Future Housing: No Difficulty Paying Gas/Electric Bills: No Difficulty Paying for Meds: No Currently Unemployed: No Education: High School Diploma/GED Difficulty w/ Childcare or Family Care: No Living arrangements: alone Spiritual care concerns: No Exam Narrative: GENERAL: Well-developed, well-nourished, and in no acute distress. HEAD: Normocephalic, atraumatic. EYES: PERRLA and EOMI. ENT: Nares clear, no rhinorrhea or epistaxis. Mucous membranes dry. Oropharynx without tonsillar hypertrophy exudate or other lesions. NECK: Supple. No adenopathy or masses. CHEST: Clear to auscultation. No respiratory distress. No wheezes rales or rhonchi HEART: Regular rate and rhythm. No murmur heard. Normal peripheral pulses. ABDOMEN: Soft, nontender, nondistended, normal active bowel sounds. G-tube present in the midline upper abdomen. There is no noted bleeding, induration or erythema. EXTREMITIES: Normal range of motion. No edema. SKIN: Erythema and hyperpigmentation noted over the anterior neck, consistent with radiation exposure. Warm, dry, no rash. NEURO: Alert and oriented x3. Moving all 4 limbs purposefully. PSYCH: Normal mood and affect. Course Course Emergency Course: 17:39 - Chemistries demonstrate CIARAN with creatinine of 2.9 (baseline 1.7). The patient is hyponatremic with sodium of 150 and hyperkalemic with potassium of 5.5. EKG is not concerning for peaked T waves. UA not concerning for UTI. CT abdomen pel
[2023-05-30 18:49] LABS: Potassium 5.9 mmol/L (3.4-5.0)
[2023-05-30] MEDS: INSULIN HUMAN REGULAR (*BKC) 100 UNITS/ML 10 UNITS IV PUSH (19:23)
[2023-05-30] MEDS: SODIUM BICARBONATE 8.4% 50 MEQ/50 ML SYRINGE IV PUSH (19:24)
[2023-05-30] MEDS: CALCIUM GLUCONATE 1,000 MG/10 ML VIAL 1000 MG IV PUSH (19:24)
[2023-05-30] MEDS: DEXTROSE 50% 25 GM/50 ML SYRINGE IV PUSH ×2 (19:25→21:05)
--- NOTE | 2023-05-30 20:20 | ADMGEN ---
This patient, Claude Spears, was admitted to IMU Room 203-01. Patient/family oriented to hospital policies and general routines including ID bracelet, bed and alarms, visiting hours, pain management, procedures, bathroom and other care routines, personal items, smoking policy, room service/diet, and visiting hours. Information on how to activate the Rapid Response Team has been discussed. Patient/Family are encouraged to report perceived risks to care and to ask questions if they do not understand what they are told or what they should do.
[2023-05-30 21:28] LABS: Glucose Point of Care 117 mg/dl (65-105)
[2023-05-30 21:28] LABS: Glucose Point of Care 59 mg/dl (65-105)
[2023-05-30] MEDS: SODIUM CHLORIDE 0.9% IV 1,000 ML 100 ML IV CONT (21:43)
[2023-05-31] VITALS (19 sets, daily range): BP systolic 147–168; BP diastolic 92–99; PULSE 70–91; RESP 14–18; TEMP 36.3–36.9; O2SAT 78–98; BMI 21.2
[2023-05-31 00:52] LABS: Anion Gap 5 mmol/L (8-16); Blood Urea Nitrogen 55 mg/dL (9-20); Calcium 9.1 mg/dL (8.4-10.2); Carbon Dioxide 26 mmol/L (22-30); Chloride 117 mmol/L (98-107); Estimated CRCL calculation 27 ml/min; Estimated Glomerular Filt Rate 25; Glucose 89 mg/dL (65-110); Magnesium 1.7 mg/dL (1.6-2.3); Phosphorus 3.6 mg/dL (2.5-4.5); Potassium 4.8 mmol/L (3.4-5.0); Sodium 148 mmol/L (137-145)
--- NOTE | 2023-05-31 04:00 | PM.IMHP ---
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 The patient reports that his last radiation therapy and chemotherapy regimen was on the day of admission. He reports that he has noticed that he can tolerate usually 3 of his tube feeds a day but he rarely can keep all 4 tube feedings down today. He reports that some more days it is the 1st tube feed in some days still last. There was no rhyme or reason to when he will vomit them. He reports that his throat is still very historian he is unable to tolerate swallowing any liquids. He states that he craves ice water and will take big gulps of ice water at times in then will vomit them back up. He reports that often times he will cough or clear nasty stuff from the back of his throat. He had this since he started the radiation radiation treatments to his throat. He reports that the back of his throat is always sore and appears white. He denies any fevers or chills. He reports that there is also no REM reason on when he will be, constipated or when he will be have so many bowel movements that they will distally gout. In he is frustrated with this whole process. He feels if he is getting dehydrated. He reports that he uses 350 mL of Jevity 1.5 4 times a day. He follows at with a 100 mL of free water. He states that he is so fatigued all the time that he has difficulty remembering to spaces tube feeds out and will sometimes half to space them closer together. He falls asleep in them forgets the give himself a tube feed. He then feels as if he has to galicia to get the rest of the feeds in for the day. He has been trying to give himself an extra 100 mL during his feeds but feels that that it is possible that sometimes this is what makes him vomit. He denies any coffee-ground emesis or hematemesis. Denies any fevers or chills. He has not been having any chest pain. His weight is stable in comparison to his prior admission when he and his G-tube placed. He has noticed that his urine has been darker. He denies any respiratory symptoms. He has been having occasional sensations of palpitations. He has not been able to take anything by mouth. He is still able to manage his secretions. Review of Systems Review of Systems: 12 systems were reviewed with pertinent positives and negatives per HPI. Except as documented in the HPI, all other systems were reviewed and are negative. [facility] Past Medical History Medical History (Updated 05/31/23 @ 04:08 by Julissa Downey DO) Asthma Malignant neoplasm of tonsillar fossa Severe protein-calorie malnutrition Surgical History Surgical History (Updated 05/31/23 @ 04:08 by Julissa Downey DO) Status post insertion of percutaneous endoscopic gastrostomy (PEG) tube (05/08/23) Family History Family History Mother Cancer Sibling Cancer Father Cancer Social History Social History (Updated 05/31/23 @ 08:01 by Julissa Downey DO) Social History: Currently lives at home alone. He quit chewing tobacco 04/26/2023. He works at a [employer] plant. He is currently on FMLA. Surrogate decision maker - brother, Tye Spears. Smoking status: Former smoker Smokeless tobacco user: chewing tobacco Second hand tobacco smoke exposure: Yes Additional smoking assessment comments: Chewed tobacco for 40 years Alcohol intake: never Substance use: never Substance use type: does not use Lack of Transportation: No Lack of Food: Never True Current Housing: I Have Housing Concerned About Future Housing: No Difficulty Paying Gas/Electric Bills: No Difficulty Paying for M
[2023-05-31 05:02] LABS: Basophils Percent Auto 0.8 % (0.2-1.2); Eosinophils Percent Auto 0.5 % (0-4.4); Hematocrit 37.2 % (42.0-52.0); Hemoglobin 11.3 g/dL (14.0-18.0); Immature Granulocyte Absolute 0.01 K/mm3 (0.00-0.031); Immature Granulocyte Percent A 0.3 % (0-0.5); Lymphocytes Percent Auto 7.6 % (18.3-44.2); Mean Corpuscular HGB Conc 30.4 g/dl (32-36); Mean Corpuscular Hemoglobin 31.3 pg (26-34); Mean Platelet Volume 11.9 fl (7.4-10.4); Monocytes Absolute Auto 0.3 K/mm3 (0.1-0.6); Monocytes Percent Auto 7.9 % (2.6-8.5); Neutrophils Absolute Auto 3.3 K/mm3 (1.3-6.7); Neutrophils Percent Auto 82.9 % (45.5-73.1); Platelet Count Result 105 k/mm3 (150-375); Red Blood Count 3.61 M/mm3 (4.6-6.20); Red Cell Distribution Width 11.4 % (11.5-14.5); White Blood Count 3.9 K/mm3 (4.5-10.0)
[2023-05-31 05:14] LABS: Anion Gap 8 mmol/L (8-16); Blood Urea Nitrogen 52 mg/dL (9-20); Calcium 9.3 mg/dL (8.4-10.2); Carbon Dioxide 25 mmol/L (22-30); Chloride 119 mmol/L (98-107); Estimated CRCL calculation 28 ml/min; Estimated Glomerular Filt Rate 27; Glucose 93 mg/dL (65-110); Potassium 5.3 mmol/L (3.4-5.0); Sodium 152 mmol/L (137-145)
[2023-05-31] MEDS: SODIUM CHLORIDE 0.9% IV 1,000 ML 100 ML IV CONT (07:48)
[2023-05-31] MEDS: DEXTROSE 5%/0.45% SOD CHL 1,000 ML 150 ML IV CONT ×3 (08:42→22:12)
[2023-05-31 12:28] LABS: Anion Gap 5 mmol/L (8-16); Blood Urea Nitrogen 48 mg/dL (9-20); Calcium 8.9 mg/dL (8.4-10.2); Carbon Dioxide 29 mmol/L (22-30); Chloride 116 mmol/L (98-107); Estimated CRCL calculation 29 ml/min; Estimated Glomerular Filt Rate 28; Glucose 120 mg/dL (65-110); Potassium 4.4 mmol/L (3.4-5.0); Sodium 150 mmol/L (137-145)
--- NOTE | 2023-05-31 14:18 | PCSTNOTE ---
Please refer to the Bedside Swallow Evaluation in the EMR. Please note, silent aspiration cannot be ruled out at bedside.
--- NOTE | 2023-05-31 15:58 | PCSTNOTE ---
Please refer to the Bedside Swallow Evaluation in the EMR. Please note, silent aspiration cannot be ruled out at bedside.
--- NOTE | 2023-05-31 15:58 | PCSTNOTE ---
Please refer to the Modified Barium Swallow Evaluation in the EMR.
[2023-05-31 17:21] LABS: Anion Gap 4 mmol/L (8-16); Blood Urea Nitrogen 46 mg/dL (9-20); Calcium 8.6 mg/dL (8.4-10.2); Carbon Dioxide 28 mmol/L (22-30); Chloride 114 mmol/L (98-107); Estimated CRCL calculation 29 ml/min; Estimated Glomerular Filt Rate 28; Glucose 103 mg/dL (65-110); Sodium 146 mmol/L (137-145)
[2023-05-31] MEDS: FLUTICASONE/SALMETEROL 115-21 MCG INHALER 1 PUFF 2 PUFF INHALATION (20:12)
[2023-06-01] VITALS (9 sets, daily range): BP systolic 153–175; BP diastolic 91–96; PULSE 70–90; RESP 14–16; TEMP 36.3–36.6; O2SAT 97–98
[2023-06-01 01:06] LABS: Potassium 4.3 mmol/L (3.4-5.0)
[2023-06-01 01:09] LABS: Anion Gap 4 mmol/L (8-16); Blood Urea Nitrogen 42 mg/dL (9-20); Calcium 8.3 mg/dL (8.4-10.2); Carbon Dioxide 28 mmol/L (22-30); Chloride 113 mmol/L (98-107); Estimated CRCL calculation 33 ml/min; Estimated Glomerular Filt Rate 32; Glucose 137 mg/dL (65-110); Sodium 145 mmol/L (137-145)
[2023-06-01] MEDS: ACETAMINOPHEN ELIXIR 325 MG/10.15 ML UDC 650 MG FEED TUBE (04:39)
[2023-06-01] MEDS: DEXTROSE 5%/0.45% SOD CHL 1,000 ML 150 ML IV CONT (04:54)
[2023-06-01 05:48] LABS: Anion Gap 5 mmol/L (8-16); Blood Urea Nitrogen 38 mg/dL (9-20); Calcium 8.4 mg/dL (8.4-10.2); Carbon Dioxide 27 mmol/L (22-30); Chloride 113 mmol/L (98-107); Estimated CRCL calculation 33 ml/min; Estimated Glomerular Filt Rate 32; Glucose 99 mg/dL (65-110); Potassium 4.4 mmol/L (3.4-5.0); Sodium 145 mmol/L (137-145)
[2023-06-01] MEDS: FLUTICASONE/SALMETEROL 115-21 MCG INHALER 1 PUFF 2 PUFF INHALATION (10:09)
--- NOTE | 2023-06-01 12:30 | PM.DS ---
DS: Admitting Diagnosis Discharge Date June 01, 2023 Admitting Diagnosis Hypernatremia DS: Discharge Diagnosis Discharge Diagnosis (1) CIARAN (acute kidney injury): Code(s): N17.9 - Acute kidney failure, unspecified Status: Acute (2) Acute hypernatremia: Code(s): E87.0 - Hyperosmolality and hypernatremia Status: Acute (3) Acute hyperkalemia: Code(s): E87.5 - Hyperkalemia Status: Acute (4) Severe protein-calorie malnutrition: Code(s): E43 - Unspecified severe protein-calorie malnutrition Status: Acute (5) Inadequate oral intake: Code(s): R63.8 - Other symptoms and signs concerning food and fluid intake Status: Acute (6) Malignant neoplasm of tonsillar fossa: Code(s): C09.0 - Malignant neoplasm of tonsillar fossa Status: Acute DS: Summary Hospital Course Hospital Course: Patient is a 58-year-old gentleman history of head neck cancer and give some self tube feeds at home. He came in with inability to swallow. Speech therapy did evaluate the patient recommended small sips with chin tuck method. He is aware of this. However home is not able to really taken a ton liquids. We will increase his free water flushes [id number] of water with meals. If he is drinking more than he can reduce that. He was previously taking 100cc of water with meals. Otherwise his electrolyte panel was abnormal came in he had some hyper natremia. This is now resolved. Sodium today is 145. No neurologic side effects. He can be discharged. He is going to follow-up with his oncologist next week Time Spent with Patient Time attestation: Total time spent providing and/or coordinating discharge services: Exam Narrative: Weight 67 kg BMI 21.2 Const: Other: Appears older than stated age, no acute distress, thin body habitus HENMT: Other: Mucous membranes are dry, no posterior oral pharyngeal erythema but edematous appearing distorted tissue in the back of his throat that is white to yellow in color consistent with history of tonsillar cancer and recent radiation therapy Eyes: Other: Pupils are equal and reactive, mild conjunctival pallor, no scleral icterus Neck: Other: Skin changes in lymphadenopathy most noted to the left side of the neck more so than the right Resp: Other: Clear to auscultation bilaterally, no increased work of breathing Cardio: Other: Regular rate, regular rhythm, 2+ bilateral radial pedal pulses GI: Other: Soft, nontender, nondistended, positive bowel sounds, G-tube present and in good position Skin: Other: Mildly erythematous skin changes to the anterior neck consistent with recent radiation therapy, otherwise mild pallor noted Neuro: Other: Alert oriented, speech is clear, no facial asymmetry, no localizing neurologic deficits noted during conversation Extrem: Other: No clubbing, cyanosis or edema Psych: Other: Depressed, pleasant and cooperative, judgment and insight intact DS: Data Data Completed and Pending Labs on day of discharge: Labs from last 24 hours 06/01/23 06/01/23 05/31/23 04:41 00:44 16:55 Sodium 145 145 146 H Potassium 4.4 4.3 5.0 Chloride 113 H 113 H 114 H Carbon Dioxide 27 28 28 Anion Gap 5 L 4 L 4 L BUN 38 H 42 H 46 H Creatinine 2.10 H 2.10 H 2.40 H Estim Creat Clear Calc 33 33 29 Estimated GFR 32 L 32 L 28 L Glucose 99 137 H 103 Calcium 8.4 8.3 L 8.6 Discharge Plan Discharge Attending physician on discharge: Varinder Silver Discharging Clinician: Varinder Silver Patient Disposition: Home Health Service Activity: as tolerated Diet: as tolerated Discharge Instructions: per Care Coordination, patient to discharge with [facility] ([phone]) for PT/OT and mcc services. Please fax discharge instructions and medication sheets to [phone]. P
== END 2023-06-01 13:38 | disposition home health service (06) ==
LOC: ANHED 17:41 → ANHIMU 20:55
PROVIDERS: Internal Medicine; Admitting Provider Internal Medicine; Emergency Provider Preventive Medicine Aerospace Medicine; PCP Internal Medicine; Visit Provider Chiropractor
DX: N17.9 Acute kidney failure, unspecified (principal); E87.0 Hyperosmolality and hypernatremia; E43 Unspecified severe protein-calorie malnutrition; R63.8 Other symptoms and signs concerning food and fluid intake; C09.0 Malignant neoplasm of tonsillar fossa; Z68.20 Body mass index [BMI] 20.0-20.9, adult; E87.5 Hyperkalemia; K59.00 Constipation, unspecified; R53.83 Other fatigue; J45.909 Unspecified asthma, uncomplicated; R11.2 Nausea with vomiting, unspecified; F17.290 Nicotine dependence, other tobacco product, uncomplicated; Z93.1 Gastrostomy status; J98.11 Atelectasis; Z92.3 Personal history of irradiation; Z79.51 Long term (current) use of inhaled steroids; Z79.60 Long term (current) use of unspecified immunomodulators and immunosuppressants; Z79.891 Long term (current) use of opiate analgesic; Z79.899 Other long term (current) drug therapy
CPT/HCPCS: 36415; 71046; 74176; 80048; 80053; 81001; 82948; 83690; 83735; 84100; 84132; 85025; 92610; 92611; 93005; 94640; 96361; 96374; 96375; 96376; 99285; A9270; G0378; J0612; J1815; J2405; J2997; J7030

== ENCOUNTER 2023-07-16 08:31 | Outpatient (CLI) | payer OTHER, SELFPAY ==
--- NOTE | ~2023-07-16 | CT_ITS ---
EXAMINATION: CT soft tissue neck w con DATE: 07/16/2023 09:27 INDICATION: Tonsillar cancer. TECHNIQUE: Computed tomography (CT) of the neck was performed with 75 mL Omnipaque-350 intravenous co ntrast. Automated exposure control and iterative reconstruction technique were employed. The dose-mei gth product was 587.20 mGy-cm. COMPARISON: Neck CT 05/07/2023 FINDINGS: The visualized portions of the lung apices demonstrate again a small left upper lobe ground glass opacity and nodules measuring up to 4 mm, likely benign. There are no pathologically enlarged l ymph nodes. The previously enlarged left internal jugular nodes are now normal in size. There are nod ules in the thyroid measuring up to 4 mm, likely not clinically significant. There is plaque in the p roximal internal carotid arteries with 0% stenosis relative to normal distal artery lumen diameters. There is mild mucosal thickening in the paranasal sinuses. There is a left otomastoid effusion. IMPRESSION: 1. No specific evidence of metastatic disease. The previously enlarged left internal jugular chain no jonathan are now normal in size. Reviewed, dictated and finalized at location E. AWYER IMPRESSION: 1. No specific evidence of metastatic disease. The previously enlarged left int ernal jugular chain nodes are now normal in size.
== END 2023-07-16 08:32 | disposition home or self-care (01) ==
PROVIDERS: PCP Internal Medicine; Visit Provider Internal Medicine Hematology & Oncology
DX: C09.9 Malignant neoplasm of tonsil, unspecified (principal)
CPT/HCPCS: 70491; Q9967

== ENCOUNTER 2023-11-19 07:36 | Outpatient (CLI) | payer OTHER, SELFPAY ==
--- NOTE | ~2023-11-19 | PE_ITS ---
EXAMINATION: PET skull to mid thigh DATE: 11/19/2023 11:48 INDICATION: Malignant neoplasm of tonsillar fossa. TECHNIQUE: 10.129 mCi of 18-fluorodeoxyglucose (18-FDG) was administered i.v. Low dose computed tomog anupam (CT) images were acquired from the base of the brain to the proximal thighs for attenuation cor rection and anatomic localization. Automated exposure control was employed. Dose-length product (DLP) was 587 mGy-cm. Positron emission tomography (PET) images were acquired in the same distribution. COMPARISON: PET CT 03/21/2023, neck CT 07/16/2023 FINDINGS: Head/neck: There are no pathologically enlarged lymph nodes. There is fat stranding in the neck, cons istent with changes of radiation therapy. Chest: There is mild emphysema. Again seen is a part-solid nodule with 3 mm solid component without i ncreased activity in left lung upper lobe, likely benign. Again seen are a few nodules in right lung upper lobe measuring up to 4 mm without increased activity, likely benign. No pleural effusion. The h eart size is normal. No pericardial effusion. Abdomen/pelvis/proximal thighs: The liver, gallbladder, spleen, pancreas, adrenal glands, and right k idney are normal. There is a 4.3 cm cyst in left kidney. There is a gastrostomy tube in expected posi tion. There are no dilated loops of bowel. The appendix is normal. There are no pathologically enlarg ed lymph nodes. There is no free intraperitoneal fluid. There is diffuse bladder wall thickening, lik kalyan secondary to chronic obstruction from the mildly enlarged prostate. There are benign bone islands in the pelvis. IMPRESSION: 1. No evidence of metastatic disease. Reviewed, dictated and finalized at location A.
[2023-11-19 08:12] LABS: Glucose Point of Care 85 mg/dl (65-105)
== END 2023-11-19 07:37 | disposition home or self-care (01) ==
PROVIDERS: PCP Internal Medicine; Visit Provider Radiology Radiation Oncology
DX: C09.0 Malignant neoplasm of tonsillar fossa (principal)
CPT/HCPCS: 78815; A9552

== ENCOUNTER 2023-12-12 07:38 | Outpatient (CLI) | payer OTHER, SELFPAY ==
--- NOTE | ~2023-12-12 | US_ITS ---
Renal-Bladder ultrasound Clinical History: Chronic kidney disease Technique: Real-time sonographic imaging of the kidneys and urinary bladder was performed. Findings: The right kidney measures 11.9 cm in length and the left kidney measures 11.4 cm. There is no hydronephrosis or renal calculus identified. Renal cortical echogenicity is within normal limits. Left renal cyst present. The urinary bladder is moderately distended at the time of this exam. No intraluminal echoes are iden tified. No abnormal wall thickening is seen. Impression: No significant abnormality. Reviewed, dictated and finalized at location . Impression: No significant abnormality.
== END 2023-12-12 07:39 ==
LOC: MICIMG 07:40
PROVIDERS: PCP Internal Medicine Nephrology; Visit Provider Internal Medicine Nephrology
DX: N18.32 Chronic kidney disease, stage 3b (principal)
CPT/HCPCS: 76775

== ENCOUNTER 2024-01-15 15:47 | Outpatient (CLI) | payer OTHER, SELFPAY ==
[2024-01-15 17:24] LABS: Complement C3 111 mg/dL (88-165)
[2024-01-15 17:28] LABS: Albumin Level 4.1 g/dL (3.5-5.1); Anion Gap 10 mmol/L (4-12); Blood Urea Nitrogen 28 mg/dL (9-20); Carbon Dioxide 20 mmol/L (22-30); Chloride 104 mmol/L (98-107); Estimated Glomerular Filt Rate 41; Glucose 105 mg/dL (65-110); Phosphorus 4.1 mg/dL (2.5-4.5); Potassium 3.8 mmol/L (3.4-5.0); Sodium 134 mmol/L (137-145)
[2024-01-15 17:36] LABS: Creatinine Urine 24.6 mg/dL; Sodium Urine Random 10 meq/L; Total Protein Urine Random 15 mg/dL; Ur Ttl Prot Creatinine Ratio 0.61 mg/mg (0-0.20)
[2024-01-16 10:28] LABS: Protein, Total 6.1 g/dL (6.1-8.1)
[2024-01-17 08:49] LABS: Creatinine, Random Urine 25 mg/dL (20-320); Total Protein/Creatinine Ratio NOTE mg/g creat (25-148)
[2024-01-17 10:24] LABS: Albumin 3.8 g/dL (3.8-4.8); Alpha 1 Globulin 0.3 g/dL (0.2-0.3); Alpha 2 Globulin 0.7 g/dL (0.5-0.9); Beta 1 Globulin 0.4 g/dL (0.4-0.6); Gamma Globulin 0.6 g/dL (0.8-1.7)
[2024-01-17 13:39] LABS: Anti Glomerular Basement Memb <1.0 AI
[2024-01-18 04:18] LABS: ANCA Screen NEGATIVE (NEGATIVE)
== END 2024-01-15 15:48 | disposition home or self-care (01) ==
LOC: ANHLAB 15:49
PROVIDERS: PCP Internal Medicine Nephrology; Visit Provider Internal Medicine Nephrology
DX: N18.32 Chronic kidney disease, stage 3b (principal)
CPT/HCPCS: 36415; 80069; 82570; 83520; 84155; 84156; 84165; 84166; 84300; 86036; 86038; 86160; 86225

== ENCOUNTER 2024-04-28 07:34 | Outpatient (CLI) | payer OTHER, SELFPAY ==
--- NOTE | ~2024-04-28 | CT_ITS ---
EXAMINATION: CT soft tissue neck w con DATE: 04/28/2024 08:06 INDICATION: Tonsillar cancer TECHNIQUE: Computed tomography (CT) of the neck was performed with 75 mL Omnipaque-350 intravenous co ntrast. Automated exposure control and iterative reconstruction technique were employed. The dose-mei gth product was 462.82 mGy-cm. COMPARISON: 07/16/2023 and 05/07/2023 FINDINGS: Orbits are normal. The paranasal sinuses are clear. Minimal left mastoid effusion. Submandibular and parotid glands are symmetric. Unchanged 1 cm nodule along the inferior margin of the right thyroid of slightly lower density than the thyroid which could represent either a thyroid nodule, parathyroid a denoma or normal sized lymph node. There are scattered normal-sized lymph nodes in the neck, no patho logically enlarged lymphadenopathy. No masses identified. The vasculature is patent and normal in ca liber. Airway is unremarkable. Superior mediastinum is unremarkable. Mild emphysematous apices of sp gs. IMPRESSION: 1. No interval change with no evident recurrent disease or pathologically enlarged cervical lymphaden opathy. Reviewed, dictated and finalized at location A. IMPRESSION: 1. No interval change with no evident recurrent disease or pathologically enlar ged cervical lymphadenopathy.
== END 2024-04-28 07:35 | disposition home or self-care (01) ==
PROVIDERS: PCP Internal Medicine; Visit Provider Internal Medicine Hematology & Oncology
DX: C09.9 Malignant neoplasm of tonsil, unspecified (principal)
CPT/HCPCS: 70491; Q9967

== ENCOUNTER 2024-05-11 15:04 | Outpatient (CLI) | payer OTHER, SELFPAY ==
[2024-05-11 15:15] LABS: Basophils Percent Auto 0.7 % (0.2-1.2); Eosinophils Absolute Auto 0.2 K/mm3 (0-0.3); Eosinophils Percent Auto 3.3 % (0-4.4); Hematocrit 36.3 % (42.0-52.0); Hemoglobin 11.7 g/dL (14.0-18.0); Immature Granulocyte Absolute 0.01 K/mm3 (0.00-0.031); Immature Granulocyte Percent A 0.2 % (0-0.5); Lymphocytes Absolute Auto 0.99 K/mm3 (0.9-3.2); Lymphocytes Percent Auto 17.4 % (18.3-44.2); Mean Corpuscular HGB Conc 32.2 g/dl (32-36); Mean Corpuscular Hemoglobin 30.2 pg (26-34); Mean Corpuscular Volume 93.8 fl (80-100); Mean Platelet Volume 10.1 fl (7.4-10.4); Monocytes Absolute Auto 0.5 K/mm3 (0.1-0.6); Monocytes Percent Auto 8.2 % (2.6-8.5); Neutrophils Percent Auto 70.2 % (45.5-73.1); Platelet Count Result 188 k/mm3 (150-375); Red Blood Count 3.87 M/mm3 (4.6-6.20); Red Cell Distribution Width 11.7 % (11.5-14.5); White Blood Count 5.7 K/mm3 (4.5-10.0)
[2024-05-11 15:19] LABS: Blood Urea Nitrogen 20 mg/dL (8-26); Carbon Dioxide 23 mmol/L (22-30); Chloride 103 mmol/L (98-109); Estimated Glomerular Filt Rate 39; Glucose 94 mg/dL (70-105); Ionized Calcium (POC) 1.24 mmol/L (1.11-1.31); Potassium 3.6 mmol/L (3.5-4.9); Sodium 138 mmol/L (138-146)
== END 2024-05-11 15:05 | disposition home or self-care (01) ==
LOC: ANHLAB 15:06
PROVIDERS: PCP Internal Medicine; Visit Provider Internal Medicine Hematology & Oncology
DX: C09.9 Malignant neoplasm of tonsil, unspecified (principal)
CPT/HCPCS: 36415; 80047; 85025

== ENCOUNTER 2024-06-04 16:06 | Outpatient (CLI) | payer OTHER, SELFPAY ==
[2024-06-04 17:11] LABS: Parathyroid Intact 98.2 pg/mL (14.5-75.2)
[2024-06-04 17:46] LABS: Albumin Level 4.4 g/dL (3.5-5.1); Anion Gap 8 mmol/L (4-12); Blood Urea Nitrogen 22 mg/dL (9-20); Calcium 9.2 mg/dL (8.4-10.2); Carbon Dioxide 23 mmol/L (22-30); Chloride 105 mmol/L (98-107); Estimated Glomerular Filt Rate 44; Glucose 98 mg/dL (65-110); Phosphorus 2.9 mg/dL (2.5-4.5); Potassium 3.9 mmol/L (3.4-5.0); Sodium 136 mmol/L (137-145)
[2024-06-04 17:55] LABS: Creatinine Urine 149.2 mg/dL
[2024-06-04 18:20] LABS: Total Protein Urine Random 419 mg/dL; Ur Ttl Prot Creatinine Ratio 2.81 mg/mg (0-0.20)
[2024-06-04 19:33] LABS: Vitamin D 25 Hydroxy 34.1 ng/mL
== END 2024-06-04 16:07 | disposition home or self-care (01) ==
LOC: ANHLAB 16:09
PROVIDERS: PCP Internal Medicine; Visit Provider Internal Medicine Nephrology
DX: N18.32 Chronic kidney disease, stage 3b (principal); N25.81 Secondary hyperparathyroidism of renal origin; E55.9 Vitamin D deficiency, unspecified
CPT/HCPCS: 36415; 80069; 82306; 82570; 83970; 84156

== ENCOUNTER 2024-10-27 07:32 | Outpatient (CLI) | payer OTHER, SELFPAY ==
[2024-10-27 07:52] LABS: Estimated Glomerular Filt Rate 34
== END 2024-10-27 07:33 | disposition home or self-care (01) ==
PROVIDERS: PCP Internal Medicine; Visit Provider Internal Medicine Hematology & Oncology
DX: C09.9 Malignant neoplasm of tonsil, unspecified (principal)
CPT/HCPCS: 70491; Q9967

== ENCOUNTER 2024-11-06 08:39 | Outpatient (CLI) | payer OTHER, SELFPAY ==
--- OUTSIDE RECORDS SUMMARY | 2024-11-06 09:00 | XMS_ITS | Referral Summary ---
Author Organization [facility] Address [address] [place] [address] Care Team Providers Care Substation Operator Helper Generation Name Role Phone Unavailable Primary Care Provider Unavailabl e Source Comments [facility],non-owned Affiliates and Associated Physician Practices is amultiple site organization consisting of ambulatory clinics and hospital sitesin [place], [place], [place] and [place]. This disclosure is being madepursuant to the Care Everywhere program and may not contain all information available regarding this patient. Last updated 18.[facility] [employer] Allergies No known active allergies Immunizations Name Administration Dates Next Due INFLUENZA VACCINE, QUADR. (F LUZONE; FLULAVAL; FLUARIX; AFLURIA QUADRIVALENT; 6MO+), 0.5 ML (IIV4) 07/05/2019 Social History Tobacco Use Types Packs/Day Years Used Date Smoking Tobacco: Never Assessed Sex and Gender Information Value Date Recorded Sex Assigned at Not on file Gender Identity Not on file Sexual Orientation Not on file Plan of Treatment Not on file
--- OUTSIDE RECORDS SUMMARY | 2024-11-06 09:00 | XMS_ITS | Patient Health Summary ---
Author Organization [facility] Address [address] [place] [address] Care Team Providers Care Electronic Security Technician Name Role Phone Unavailable Primary Care Provider Unavailabl e Note from [facility],non-owned Affiliates and Associated Physician Practices is amultiple site organization consisting of ambulatory clinics and hospital sitesin [place], [place], [place] and [place]. This disclosure is being madepursuant to the Care Everywhere program and may not contain all information available regarding this patient. Last updated 18.[facility] Allergies No known active allergies Immunizations * INFLUENZA VACCINE, QUADR. (FLUZONE; FLULAVAL; FLUARIX; AFLURIA QUADRIVALENT; 6MO+), 0.5 ML (IIV4)(Given 07/05/2019) Social History Tobacco Use Types Packs/Day Years Used Date Smoking Tobacco: Never Assessed Sex and Gender Information Value Date Recorded Sex Assigned at Not on file Gender Identity Not on file Sexual Orientation Not on file
--- OUTSIDE RECORDS SUMMARY | 2024-11-06 09:00 | XMS_ITS | Clinical Summary ---
Author Organization [facility]ene[facility] Address [address] [place] [address] Care Team Providers Care Molder Apprentice Name Role Phone Elias Francisco MD Primary Care Provider [phone] Allergies No known active allergies Medications Symbicort 160-4.5 mcg/actuation HFA Aerosol Inhaler Take 2 Puffs by inhalation. 12/17/2022 Active Active Problems No known active problems Encounters Date Type Department Care Team Description 10/27/2024 Orders Only [facility] - [place] [address] [place] [address] Jamaal Bunch MD from Last 3 Months Family History Relation Name Status Comments Brother Alive Father Mother Alive Sister Alive Son Alive Social History Tobacco Use Types Packs/Day Years Used Date Smoking Tobacco: Never Smokeless Tobacco: Former Chew Quit: 04/26/2023 Tobacco Cessation:Counseling Given: Not Answered Alcohol Use Standard Drinks/Week Comments Yes 0 (1 standard drink = 0.6 oz pur e alcohol) rare Sex and Gender Information Value Date Recorded Sex Assigned at Not on file Legal Sex Male 9:20 AM CDT Gender Identity Not on file Sexual Orientation Not on file Last Filed Vital Signs Vital Sign Reading Time Taken Comments Blood Pressure 158/99 05/11/2024 3:17 PM CDT patient states this is his normal Pulse 72 05/11/2024 3:17 PM CDT Temperature 36.8 C (98.2 F) 05/11/2024 3:17 PM CDT Respiratory Rate 16 05/11/2024 3:17 PM CDT Oxygen Saturation 97% 05/11/2024 3:1 7 PM CDT Inhaled Oxygen Concentration - - Weight 64.4 kg (142 lb) 05/11/2024 3:17 PM CDT Height 177.8 cm (5' 10 ) 04/08/2023 8:4 0 AM CDT Body Mass Index 20.37 04/08/2023 8:40 AM CDT Plan of Treatment Health Maintenance Due Date Last Done Comments DTAP/TDAP/TD VACCINES (1 - Tdap) 1983 COLORECTAL SCREENING 2009 Colorectal Cancer Screening 2009 FIT-DNA Q 3 years 2009 FIT/FOBT Q 1 year 2009 Flex Sig/CT Colonography Q 5 years 2009 ZOSTER VACCINE (1 of 2) 2014 INFLUENZA VACCINE (#1) 2024 07/05/2019 Preventative Visit- Commercial 08/26/2024 RSV VACCINE (60+ or ) (1 - 1-dose 75+ series) 2039 HEPATITIS B VACCINES Aged Out No long er eligible based on patient's age to complete this topic Procedures Procedure Name Priority Date/Time Associated Diagnosis Comments CT SOFT TISSUE NECK W CONTRAST Routine 10/27/2024 10:29 AM SECTION REPAIRER from Last 3 Months Results * CT SOFT TISSUE NECK W CONTRAST (10/27/2024 10:29 AM SECTION REPAIRER) Anatomical Region Laterality Modality Neck Other Jamaal Bunch MD CT ORDERABLES Final Result from Last 3 Months Insurance [employer] [facility] [id number] Care Teams Molder Apprentice Relationship Specialty Start Date End Date Elias Francisco MD [address] [address] PCP - General Internal Medicine 03/07/23
--- OUTSIDE RECORDS SUMMARY | 2024-11-06 09:00 | XMS_ITS | Clinical Summary ---
Author Organization [facility] Address [address] [place] [address] Care Team Providers Care Landscape Account Manager Name Role Phone Unavailable Primary Care Provider Unavailabl e Source Comments [facility],non-owned Affiliates and Associated Physician Practices is amultiple site organization consisting of ambulatory clinics and hospital sitesin [place], [place], [place] and [place]. This disclosure is being madepursuant to the Care Everywhere program and may not contain all information available regarding this patient. Last updated 18.[facility] [employer] Allergies No known active allergies Immunizations Name [...] Orientation Not on file Plan of Treatment Health Maintenance Due Date Last Done Comments COLOGUARD (AGES 45-75) - COL ON CA SCREENING 1964 COLON MONITORING 1964 COLONOSCOPY - COLON CA SCREENING 1964 CT COLONOGRAPHY - COLON CA SCREENING 1964 Colorectal Cancer Screening 1964 FIT - COLON CA SCREENING 1964 FLEX SIG - COLON CA SCREENING 1964 LIPID TESTING 1964 HIV SCREENING 1979 HEPATITIS C SCREENING 05/09/1982 DTAP/TDAP/TD VACCINES (1 - Tdap) 1983 PNEUMOCOCCAL VACCINE 50+ (1 of 1 - PCV) 2014 ZOSTER VACCINE (1 of 2) 2014 COVID-19 VACCINE (1 - 2023-2 5 season) 2024 INFLUENZA VACCINE (#1) 2024 07/05/2019 DEPRESSION SCREENING 08/26/2024 Respiratory Syncytial Virus (RSV) Vaccine Pt: or over 60 yrs (1 - 1-dose 75+ series) 2039 HEPATITIS B VACCINE Aged Out No longe r eligible based on patient's age to complete this topic HIB VACCINE Aged Out No longer eligi ble based on patient's age to complete this topic HPV VACCINE Aged Out No longer eligi ble based on patient's age to complete this topic MENINGOCOCCAL (Group B) VACC INE SHARED DECISION-MAKING Aged Out No longer eligibl e based on patient's age to complete this topic MENINGOCOCCAL GROUPS A/C/Y/W VACCINE Aged Out No longer eligible b ased on patient's age to complete this topic PNEUMOCOCCAL VACCINE Aged Out No long er eligible based on patient's age to complete this topic
--- OUTSIDE RECORDS SUMMARY | 2024-11-06 09:00 | XMS_ITS | Data Portability ---
Author Organization [facility] sarvaMAIL, Main Office Address [address] [place] [address] Assessment No assessment recorded. Plan of Treatment Reminders Order Date Submit Date Provider Last Modified By Organization Details Last Modified Time Details Appointments Establish ed Patient 15 2024 03:30P M Elias Francisco MD Not available Not available Not available Lab lipid panel, serum [address] (Lab), [address] [place], [address], 11/04/2024 17:36:36 PSA, total, serum or plasma [email or web address] (Lab), [address] [place], [address], 11/04/2024 17:36:36 CMP, serum or plasma [address] (Lab), [address] [place], [address], 11/04/2024 17:36:36 CBC [email or web address] (Lab), [address] [place], [address], 11/04/2024 17:36:36 Referral speech therapy referral 2022 023 [email or web address] [facility], [address] [place], [address], 08/07/2023 08:10:51 health home referral - Speech to see for swallow 2022 023 [email or web address] [facility] ([facility]), [address], [place], [address], 07/17/2023 12:37:12 Procedures None recorded. Surgeries None recorded. Imaging None recorded. Medication Orders budesonid e-formote rol HFA 160 mcg-4.5 mcg/actua tion aerosol inhaler 2024 025 [facility] #[id number], [address], [place], [address], 09/01/2024 16:25:10 albuterol sulfate HFA 90 mcg/actua tion aerosol inhaler 2024 025 [facility] #[id number], [address], [place], [address], 09/01/2024 16:25:10 Zithromax Z-Lemuel 250 mg tablet 2024 025 [facility] #[id number], [address] [place], [address], 09/01/2024 16:25:09 Symbicort 160 mcg-4.5 mcg/actua tion HFA aerosol inhaler 2023 024 [facility] #[id number], [address], [place], [address], 11/08/2023 10:54:48 escitalop jaylon 10 mg tablet 2022 023 [email or web address] [email or web address] [facility]acy #[id number], [address], [place], [address], 03/03/2024 16:41:38 escitalop jaylon 10 mg tablet 2022 023 [email or web address] [email or web address] [facility] #[id number], [address] [place], [address], 03/03/2024 16:41:38 Patient TargetsNo targets recorded. Patient Instructions Encounter Date Encounter Id Patient Instructions Last Modified By Organization Details Last Modified Time 07/10/2023 [id number] risk assessment* [email or web address] Not availabl e 07/10/2023 17:19:29 INFLUENZA VACCIN E Recommended today, but patient declined TD/TDAP Recommended today, patient declined Ordered Patient will get at local pharmacy/health department PNEUMONIA VACCINE Ordered Recommend ed today, patient declined Patient will get at local pharmacy/health department Recomm ended at age 64 SHINGLES Ordered Recommend ed today, patient declined Patient will get at local pharmacy/health department PSA COLORECTAL SCREENING No screening necessary patient is up to date DEPRESSION SCREENING Negative BMI Overweight Approp riate NUTRITION PHYSICAL ACTIVITY Need more exercise/physical activity ALCOHOL USE No alcohol use TOBACCO USE non smoker LUNG CANCER SCREENING SEXUALLY ACTIVE HEPATITIS C SCREENING Not indicated GLUCOSE SCREENING LIPID SCREENING [email or web address] Not available 07/10/2023 15:55:29 Reason for Referral Health Home Referral for [facility] malignant neoplasm of tonsil Speech to see for swallow Referring Physician: Elias Francisco, Internal Medicine, Encounter Date: 07/10/2023 Referring Physician: García Francsico, Internal Medicine, Encounter Date: 07/10/2023 Results Created Date Observation Date Name Description Value Unit Range Abnormal Flag Note LastModifiedBy Organization Detail LastModifiedTime 04/28/20 24 04/28/2024 CT, neck, soft tissu e, w/ contr ast No observ ation record ed. BARCODE Not Available 2023 18:56:16 Result Notes None recorded. Problems Name Problem SNOMED Code Status Onset Date Resolution Date Notes Provider Name and Address Organization Details Recorded Time Asthma 448390647 Active Not Available [facility] 3 14:46:53 Upper respirator y infection 29117438 Completed Elias Francisco MD [address] [place] [address], [facility] [address], [place], [address] , [facility] [employer] 5 16:22:43 Influenza [id number] Completed Not Available [facility] 3 14:46:53 Stress 55178947 Active Not Available [facility] 3 14:46:54 Mass of neck 050550601 Active 2022 Stephanie Stsheylalebea n, RMA null, [place] [facility] 3 11:26:59 Primary malignant neoplasm of tonsil 228332395 Active 2022 Stephanie Stufflebea n, RMA null, [place] [facility] 3 11:26:57 Hearing loss 79774566 Active 2022 Stephanie Stufflebea n, RMA null, [place] [facility] 3 11:27:01 Dysphagia 90857979 Active 2022 Stephanie Stufflebea n, RMA null, [place] [facility] 3 11:27:03 Depressive disorder 18544144 Active 2022 Stephanie Stsheylalebea n, RMA null, [place] [facility] 3 11:27:05 Cough 75814711 Active 2023 Marleny Monsivais LPN null, [place] [facility] 4 15:33:05 Kidney disease 32591625 Active 2023 Elias Francisco MD [address], [address], [place], [address] , [facility] [place] [facility] 4 10:50:48 Abnormal weight loss 106122862 Active 2023 Elias Francisco MD [address], [address], [place], [address] , [place] [facility] 4 10:53:29 Anemia 297765160 Active 2023 Elias Francisco MD [address], [address], [place], [address] , [place] [facility] [place] [facility] 4 10:55:09 Upper respirator y infection 04691994 Active 2024 Elias Francisco MD [address], [address], [place], [address] , [place] [facility] 5 16:22:43 Problem Notes None recorded. Procedures Surgical History None recorded. Imaging Results Imaging Date Name Status LastModified by Organiz ation Details LastModified Time 04/28/2024 CT, neck, soft tissue, w/ contrast completed BARCODE Information not available 04/28/2024 18:56:16 Procedure Notes None recorded. Medical Equipment None Reported. Allergies Allergen ID Allergen Name Allergen Category Reaction Reaction Severity Criticality Documentation Date Start Date Code Code System Note Provider Name and Address Organization Details Recorded Time 19390 Product containin g penicilli n (product) medicatio n anaphylax is Not available Not available 10/24/2022 63504 8001 SNOMED Not Available [facility] 3 14:49:01 Medications Name Sig Start Date Stop Date Status Note LastModified by Organization Details LastModified Time amoxicillin 500 mg capsule Take 1 capsule 3 times a day by oral route. active Not Available Not Available No t Available doxycycline hyclate 100 mg capsule active Not Available Not Available N ot Available albuterol sulfate 2.5 mg/3 mL (0.083 %) solution for nebulizatio n Inhale 3 mL 4 times a day by nebulizat ion route as needed. active Not Available Not Available No t Available cetirizine 10 mg tablet TAKE 1 TABLET BY MOUTH ONCE DAILY NEEDED FOR ALLERGY SYMPTOMS 09/30 completed Not Available Not Available Not Available azithromyci n 250 mg tablet TAKE 2 TABLETS BY MOUTH TODAY, THEN TAKE 1 TABLET DAILY FOR 4 DAYS DIRECTED active Not Available Not Available No t Available benzonatate 200 mg capsule TAKE 1 CAPSULE BY MOUTH THREE TIMES A DAY NEEDED 11/07 completed Not Available Not Available Not Available Tamiflu 75 mg capsule Take 1 capsule twice a day by oral route. active Not Available Not Available No t Available omeprazole 40 mg capsule,del ayed release TAKE 1 CAPSULE BY MOUTH EVERY DAY 11/07 completed Not Available Not Available Not Available amoxicillin 500 mg tablet Take 1 tablet every 8 hours by oral route. 12/27 completed Not Available Not Available Not Available ondansetron 8 mg disintegrat ing tablet PLEASE SEE ATTACHED FOR DETAILED DIRECTION S 03/03 completed Not Available Not Available Not Available ofloxacin 0.3 % ear drops PLACE 3-4 DROPS IN LEFT EAR TWICE A DAY FOR 5 DAYS 11/07 completed Not Available Not Available Not Available benzonatate 100 mg capsule 09/30 completed Not Available Not Available Not Available prednisone 50 mg tablet TAKE 1 TABLET BY MOUTH ONCE DAILY WITH FOOD 09/30 completed Not Available Not Available Not Available hydroxyzine HCl 25 mg tablet Take 1 tablet 3 times a day by oral route as needed. 03/20 completed Not Available Not Available Not Available ergocalcife rol (vitamin D2) 1,250 mcg (50,000 unit) capsule active Not Available Not Available Not Available levofloxaci n 500 mg tablet TAKE 1 TABLET BY MOUTH EVERY DAY FOR 7 DAYS 11/07 completed Not Available Not Available Not Available levofloxaci n 750 mg tablet 05/27 completed Not Available Not Available Not Available methylpredn isolone 4 mg tablets in a dose pack TAKE 6 TABLETS ON DAY 1 DIRECTED ON PACKAGE AND DECREASE BY 1 TAB EACH DAY FOR A TOTAL OF 6 DAYS 11/07 completed Not Available Not Available Not Available albuterol sulfate HFA 90 mcg/actuati on aerosol inhaler TAKE 2 PUFFS BY MOUTH EVERY 4 HOURS NEEDED active Not Available Not Available No t Available doxycycline hyclate 100 mg tablet 05/11 completed Not Available Not Available Not Available amoxicillin 875 mg-potassiu m clavulanate 125 mg tablet TAKE 1 TABLET BY MOUTH EVERY 12 HOURS FOR 10 DAYS 11/07 completed Not Available Not Available Not Available oxycodone 5 mg tablet TAKE 1 TABLET (5 MG) BY MOUTH EVERY 4 HOURS NEEDED FOR PAIN MAX DAILY AMOUNT: 30 MG 11/07 completed Not Available Not Available Not Available escitalopra m 10 mg tablet TAKE 1 TABLET BY MOUTH EVERY DAY 03/03 completed Not Available Not Available Not Available Flovent HFA 220 mcg/actuati on aerosol inhaler INHALE 2 PUFFS TWICE DAILY active Not Available Not Available No t Available budesonide- formoterol HFA 160 mcg-4.5 mcg/actuati on aerosol inhaler INHALE 2 PUFFS BY MOUTH TWICE DAILY active Not Available Not Available No t Available Suprep Bowel Prep Kit 17.5 gram-3.13 gram-1.6 gram oral solution 11/03 completed Not Available Not Available Not Available Isosource 1.5 Robert 0.07 gram-1.5 kcal/mL liquid for tube feed 6 container s a day per tube feeding 07/10 completed Not Available Not Available Not Available Vitals Date Recorded Body height Body mass index (BMI) Body weight Body temperature Oxygen saturation Oxygen saturation in Arterial blood by Pulse oximetry Heart rate Systolic blood pressure Diastolic blood pressure Provider Name and Address Organization Details Last Updated DateTime 3 175.26 cm 22.3 kg/m2 01150.4 5 g 98 [degF] 97 % 97 % 108 /min 122 mm[Hg] 62 mm[Hg] Merlin Walter [facility] [employer] [place] [facility] [employer] [facility] 3 15:14:55 Date Recorded Body height Body mass index (BMI) Body weight Body temperature Heart rate Oxygen saturation Oxygen saturation in Arterial blood by Pulse oximetry Systolic blood pressure Diastolic blood pressure Provider Name and Address Organization Details Last Updated DateTime 3 175.26 cm 22.4 kg/m2 17478.0 4 g 97.7 [degF] 98 /min 98 % 98 % 138 mm[Hg] 80 mm[Hg] Stephanie gao [facility] [employer] [facility] 3 11:26:40 Date Recorded Body height Body mass index (BMI) Body weight Body temperature Heart rate Oxygen saturation Oxygen saturation in Arterial blood by Pulse oximetry Systolic blood pressure Diastolic blood pressure Provider Name and Address Organization Details Last Updated DateTime 4 175.26 cm 20.2 kg/m2 74532.1 5 g 98.1 [degF] 84 /min 99 % 99 % 132 mm[Hg] 88 mm[Hg] Millie larson [facility] [employer] [facility] 4 10:12:21 Date Recorded Body height Body mass index (BMI) Body weight Body temperature Heart rate Oxygen saturation Oxygen saturation in Arterial blood by Pulse oximetry Systolic blood pressure Diastolic blood pressure Provider Name and Address Organization Details Last Updated DateTime 4 175.26 cm 21 kg/m2 31246.1 2 g 97.6 [degF] 94 /min 96 % 96 % 140 mm[Hg] 84 mm[Hg] Stephanie gao [facility] [employer] [place] [facility] [employer] [facility] 4 16:38:03 Date Recorded Body height Body mass index (BMI) Body weight Body temperature Heart rate Oxygen saturation Oxygen saturation in Arterial blood by Pulse oximetry Systolic blood pressure Diastolic blood pressure Provider Name and Address Organization Details Last Updated DateTime 5 175.26 cm 22.4 kg/m2 70928.0 4 g 97.5 [degF] 110 /min 98 % 98 % 128 mm[Hg] 98 mm[Hg] Stephanie gao, [place] [facility] [employer] 5 15:36:29 Social History Question Answer Notes LastModified by [employer] Details LastModified Time Tobacco Smoking Status Never Smoker Not Available [facility] 10/24/2022 14:44:43 Do You Have An Advance Directive? Yes [id number] Information not available 10/24/2022 What Is Your Level Of Alcohol Consumption? Moderate Daily [id number] Information not available 10/24/2022 What Is Your Level Of Caffeine Consumption? Moderate [id number] Information not available 10/24/2022 How Much Tobacco Do You Chew? 5+/day [id number] Information not available 10/24/2022 What Type Of Diet Are You Following? REGULAR [id number] Information not available 10/24/2022 Which Illicit Or Recreational Drugs Have You Used? 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 12/30/2020 [id number] Information not available 10/24/2022 Do You Use Sunscreen Routinely? Yes [id number] 026 Information not available 10/24/2022 Have You Recently Traveled Abroad? No [id number] 026 Information not available 10/24/2022 Sex: Unknown Functional Status Question Answer Note LastModified by [employer] Details LastModified Time What is your exercise level? Moderate [id number] Information not available 10/24/2022 Mental Status None recorded. Family History Relationship Description Onset Age of this Age Resolved Age Notes LastModified by Organization Details LastModified Time Maternal Grandmother Essential hypertension [id number] Not available 10/24/2022 14:44:56 Father Malignant neoplastic disease [id number] [id number] Not available 10/24/2022 14:44:56 Paternal Uncle Malignant neoplastic disease [id number] [id number] Not available 10/24/2022 14:44:56 Paternal Aunt Malignant neoplastic disease [id number].304 [id number] Not available 10/24/2022 14:44:56 Medical History Condition Response ASTHMA Y Past Encounters Encounter ID Performer Location Encounter Start Date Encounter Closed Date Diagnosis/Indication Diagnosis SNOMED-CT Code Diagnosis ICD10 Code Diagnosis Note [id number] [facility] [address] [place] [address] 12/30/2020 00:00:00 12/30/2020 16:10:16 [id number] [facility] [address] [place] [address] 05/11/2021 00:00:00 05/11/2021 17:13:01 [id number] [facility] [address] [place] [address] 06/13/2021 00:00:00 06/13/2021 12:28:05 [id number] [facility] [address] [place] [address] 03/20/2022 00:00:00 03/20/2022 16:55:19 [id number] Virginia Corbin [facility] [address] [facility] [place] [address] 01/09/2023 16:27:42 01/09/2023 17:12:54 Asthma 982496284 J45.909 under control Adult [facility] th examination 830860122 Z00.00 Colonoscop y- 08/2020 w/Dr. Ruiz on- not in chartPSA- neededFLU- 2020COVID- Has not had Mass of neck 743989072 R 22.1 Screening for malignant neoplasm of prostate 619637662 Z12.5 [id number] Elias Francisco MD [facility] [address] [place] [address]. [place] [address] 07/10/2023 14:59:35 07/10/2023 15:59:33 Asthma 466735133 J45.909 under control Adult [facility] examination 368156729 Z00.00 Colonoscop y- 08/2020 [facility] Primary ma lignant neoplasm of tonsil 303533629 C09.9 to get f/u CT scan Tube feeding diet 780047 07 Z76.89 getting 350 ml 4 x a day Hearing loss 59468906 H9 1.90 he will discuss with oncology about potential side effect Dysphagia 61315715 R13.1 0 Depressive disorder 3548 9007 F32.A start meds Depression screening 171 521760 Z13.31 [id number] Elias Francisco MD [facility] [address] [facility] [place] [address] 08/09/2023 11:16:51 08/09/2023 11:55:12 Primary malignant neoplasm of tonsil 150856891 C09.9 to get f/u CT scan in 09/17 Tube feeding diet 180976 07 Z76.89 no more needed Hearing loss 00162170 H9 1.90 seeing ENT Dysphagia 61028278 R13.1 0 MUCH BETTER Depressive disorder 3548 9007 F32.A much [id number] Elias Francisco MD [facility] Internal Med [facility] [address] [facility] [place] [address] 11/08/2023 10:03:01 11/08/2023 11:05:07 Asthma 260290518 J45.909 under control Adult [facility] examination 666204601 Z00.00 Colonoscop y- 08/2020 w/[facility] not had Primary ma lignant neoplasm of tonsil 205637460 C09.9 going to get PET Hearing loss 36628290 H9 1.90 seen ENT ,has tubes Dysphagia 90146096 R13.1 0 better Depressive disorder 3548 9007 F32.A meds help Kidney disease 98626276 N08 to see nephrology Abnormal weight loss 267 390070 R63.4 to restart tube feeding once a day Anemia 892136197 D64.9 on iron and b12 [id number] Elias Francisco MD [facility] Internal Med [address] [facility] [place] [address] 03/03/2024 16:28:35 03/04/2024 11:22:39 Asthma 400441472 J45.909 under control Adult heal examination 317057274 Z00.00 Colonoscop y- 08/2020 w/Dr. Ruiz on- not in chartPSA-F CORNELIUS- 2020COVID- Has not had Primary ma lignant neoplasm of tonsil 598434500 C09.9 no recurrence Hearing loss 97885689 H9 1.90 seen ENT ,has tubes Dysphagia 04188330 R13.1 0 better Depressive disorder 3548 9007 F32.A meds help Kidney disease 68621309 N08 seen nephrology Abnormal weight loss 267 675158 R63.4 improving Anemia 185673643 D64.9 advised to take iron and b12 [id number] Elias Francisco MD [facility] Internal Med [facility] [address] [place] [address] 09/01/2024 15:26:58 09/01/2024 16:26:30 Asthma 673903256 J45.909 under control Adult [facility] examination 529240691 Z00.00 Colonoscop y- 08/2020 w/Dr. Ruiz on- not in chartA- dueFLU- 2019- Declined OVID- Has not had Primary ma lignant neoplasm of tonsil 414755496 C09.9 no recurrence Hearing loss 21970422 H9 1.90 seen ENT ,has tubes Dysphagia 65876465 R13.1 0 improved Depressive disorder 3548 9007 F32.A meds help Kidney disease 00120561 N08 seen nephrology Anemia 901962533 D64.9 labs Screening for malignant neoplasm of prostate 026674352 Z12.5 Hyperlipid emia screening 851362075 Z13.220 Upper resp iratory infection 39860323 J06.9 Health Concerns Section Related Observation LastModified by Organization Detai ls LastModified Time None Recorded Concern Status LastModified by Organization Details LastModified Time None Recorded Advance Directives Directive Y: Payers Encounter Date Sequence Insurance Name Policy Number Policy Banegas Covered Member ID Banegas Member ID Guarantor Name 07/10/2023 1 [place] [id number] Claude Spears [id number] Claude Donisoper 08/09/2023 1 [facility] [id number] Claude Donisoper [id number] Claude Donisoper 11/08/2023 1 [facility] [id number] Claude Spears [id number] Claude Donisoper 03/03/2024 1 [facility] [id number] Claude Donisoper [id number] Claude Donisoper 09/01/2024 1 [facility] [id number] Claude Spears [id number] Claude Spears Notes Date Note Type Note Provider Name and Address Organization Details Recorded Time 07/10/2023 text/html He is here today for his routine follow up. Tonsillar cancer- he was seen in , had a mass, CT was done, had biopsy, seeing Dr Bunch, had chemo and RT, GETTING POST TREATMENT ct SCAN Weight loss of 21 lbs, has dysphagia, nausea and poor taste PEG- getting home tube feeding since 05/18 Pt complains of hearing getting worse since Chemo.Asthma- On Symbicort and Proair, Uses nebulizer as needed. under control Depression- feeling sad, depressed, some anxiety Fatigue- feeling tired all the times Elias Francisco MD [address] [place] [address], [facility] [address], [place], [address], [facility] [employer] 07/10/2023 17:19:32 08/09/2023 text/html He is here today for a 1 month follow upHe was started on Escitalopram and mood and anxiety is better, sleeping Still has a feeding tube. He has gained 1 lb, denies any nausea or vomiting. Has another CT scan scheduled in Aug 2023. Radiation and chemo has affected his ears, He had a tube placed in his left ear Saturday Previous OV:He is here today for his routine follow up.Tonsillar cancer- he was seen in , had a mass, CT was done, had biopsy, seeing Dr Bunch, had chemo and RT, GETTING POST TREATMENT ct SCANWeight loss of 21 lbs, has dysphagia, nausea and poor tastePEG- getting home tube feeding since 05/18Pt complains of hearing getting worse since Chemo.Asthma- On Symbicort and Proair, Uses nebulizer as needed. under controlDepression- feeling sad, depressed, some anxietyFatigue- feeling tired all the times Elias Francisco MD [address], [place], [address], [employer] [facility] 08/09/2023 11:53:47 11/08/2023 text/html He is here today for his routine follow up. Tonsillar cancer- he was seen in , had a mass, CT was done, had biopsy, seeing Dr Bunch, had chemo and RT Weight loss of 15 lbs, has dysphagia, nausea and poor taste, no more tube feeding PEG- was getting home tube feeding since 05/18, stopped as appetite has improved Pt complains of hearing getting worse since Chemo.Asthma- On Symbicort and Proair, Uses nebulizer as needed. under control Depression- was feeling sad, depressed, some anxiety, better with medsMeds- Escitalopram 10 mg qd Fatigue- feeling tired all the times Kidney disease- GFR getting worse on recent labs at oncology, going to see nephrology Anemia- on iron and b12 Elias Francisco MD [address], [place], [address], [employer] 11/08/2023 10:57:30 03/03/2024 text/html He is here today for his routine follow up.Pt stopped taking all his meds except his inhaler Tonsillar cancer- was seen in , had a mass, CT was done, had biopsy, seeing Dr Bunch, had chemo and RT. PET scan done in 11/16 showed no recurrence Weight gained 5 lbs, has dysphagia, nausea and poor taste, no more tube feeding , removed in 02/16 PEG- was getting home tube feeding since 05/18, Pt complains of hearing getting worse since Chemo. seen ENT, has a tube in it.Asthma- On Symbicort and Proair, Uses nebulizer as needed. under control Depression- Stopped taking Escitalopram- Pt states he has good days and bad days.No thoughts of self harm Fatigue- was feeling tired all the times, some improvement Kidney disease- GFR was getting worse done at oncology, seeing nephrology 41 ( 05/2023), had more labs recently by nephrology Anemia- was on iron and b12 Elias Francisco MD [address], [place], [address], [facility] [employer] [facility] sarvaMAIL 03/03/2024 17:06:54 09/01/2024 text/html He is here today for his routine follow up. Has been having some chest congestion, Has been using the inhalers but not helping so much. has been going on for about 1 1/2 weeks Tonsillar cancer- was seen in , seeing Dr Bunch, had chemo and RT. PET scan done in 11/[address] showed no recurrence in 05/19Pt has no symptomsappetite is good, has gained 10 lbs Hearing loss from the chemo, seen ENT, has a tube in it.Asthma- On Symbicort and Proair, Uses nebulizer as needed. under control Depression- was Escitalopram- no more symptoms, no anxiety, sleeps fine Kidney disease- seeing nephrology, getting worse, seeing nephrology, Dr littlejohn Anemia- was on iron and b12 Elias Francisco MD [address], [address], [place], [address], [employer] 09/01/2024 16:26:24
[2024-11-06 09:10] LABS: Basophils Percent Auto 0.6 % (0.2-1.2); Eosinophils Absolute Auto 0.1 K/mm3 (0-0.3); Eosinophils Percent Auto 1.1 % (0-4.4); Hematocrit 41.3 % (42.0-52.0); Hemoglobin 13.5 g/dL (14.0-18.0); Immature Granulocyte Absolute 0.02 K/mm3 (0.00-0.031); Immature Granulocyte Percent A 0.3 % (0-0.5); Lymphocytes Absolute Auto 0.84 K/mm3 (0.9-3.2); Lymphocytes Percent Auto 13.5 % (18.3-44.2); Mean Corpuscular HGB Conc 32.7 g/dl (32-36); Mean Corpuscular Hemoglobin 29.9 pg (26-34); Mean Corpuscular Volume 91.4 fl (80-100); Mean Platelet Volume 10.1 fl (7.4-10.4); Monocytes Absolute Auto 0.3 K/mm3 (0.1-0.6); Monocytes Percent Auto 4.3 % (2.6-8.5); Neutrophils Percent Auto 80.2 % (45.5-73.1); Platelet Count Result 232 k/mm3 (150-375); Red Blood Count 4.52 M/mm3 (4.6-6.20); Red Cell Distribution Width 11.9 % (11.5-14.5); White Blood Count 6.2 K/mm3 (4.5-10.0)
[2024-11-06 09:16] LABS: Blood Urea Nitrogen 19 mg/dL (8-26); Carbon Dioxide 22 mmol/L (22-30); Chloride 105 mmol/L (98-109); Estimated Glomerular Filt Rate 44; Glucose 161 mg/dL (70-105); Ionized Calcium (POC) 1.22 mmol/L (1.11-1.31); Potassium 3.4 mmol/L (3.5-4.9); Sodium 139 mmol/L (138-146)
[2024-11-06 10:03] LABS: Albumin Level 4.2 g/dL (3.5-5.1); Anion Gap 12 mmol/L (4-12); Blood Urea Nitrogen 19 mg/dL (9-20); Calcium 9.5 mg/dL (8.4-10.2); Carbon Dioxide 23 mmol/L (22-30); Chloride 104 mmol/L (98-107); Estimated Glomerular Filt Rate 48; Glucose 155 mg/dL (65-110); Phosphorus 2.2 mg/dL (2.5-4.5); Potassium 3.4 mmol/L (3.4-5.0); Sodium 139 mmol/L (137-145)
[2024-11-06 10:04] LABS: Alanine Aminotransferase 22 U/L (6-50); Albumin Level 4.2 g/dL (3.5-5.1); Alkaline Phosphatase 114 U/L (38-126); Anion Gap 9 mmol/L (4-12); Aspartate Amino Transferase 23 U/L (17-59); Bilirubin,Total 0.6 mg/dL (0.2-1.3); Blood Urea Nitrogen 19 mg/dL (9-20); Calcium 9.4 mg/dL (8.4-10.2); Carbon Dioxide 24 mmol/L (22-30); Chloride 105 mmol/L (98-107); Estimated Glomerular Filt Rate 48; Glucose 161 mg/dL (65-110); Potassium 3.5 mmol/L (3.4-5.0); Sodium 138 mmol/L (137-145)
[2024-11-06 10:08] LABS: Creatinine Urine 168.8 mg/dL; Total Protein Urine Random 11 mg/dL; Ur Ttl Prot Creatinine Ratio 0.07 mg/mg (0-0.20)
== END 2024-11-06 08:40 | disposition home or self-care (01) ==
LOC: ANHLAB 08:40
PROVIDERS: Internal Medicine Hematology & Oncology; PCP Internal Medicine; Visit Provider Internal Medicine Nephrology
DX: N18.32 Chronic kidney disease, stage 3b (principal); C09.9 Malignant neoplasm of tonsil, unspecified
CPT/HCPCS: 36415; 80047; 80053; 80069; 82570; 84156; 85025

== ENCOUNTER 2025-02-09 08:53 | Outpatient (CLI) | payer OTHER, SELFPAY ==
--- NOTE | ~2025-02-09 | CT_ITS ---
CT soft tissue neck chest w Ordering provider: Jamaal Bunch MD History: 59 years Male with . tonsil cancer . Comparison: October 27, 2024 Technique: CT soft tissues neck and chest was performed with contrast. Radiation reduction technique utilized.The dose-length product was 632.37 mGy-cm. Findings: NECK: LOWER HEAD: Bilateral maxillary sinus disease. Minimal left mastoid air cells effusion right nasal se ptal deviation. Otherwise, The visualized brain parenchyma, optic globes/orbits and mastoids are norm al. The visualized paranasal sinuses are well aerated. SALIVARY GLANDS: Small hypodensity in the left parotid the gland unchanged. THYROID: Normal. DEEP SPACES: Normal. CAROTID ARTERIES: Mild bilateral atherosclerotic changes. JUGULAR VEINS: Normal. TONSILS: Slight enlargement of both tonsils is noted with slight enhancement. Overlying artifacts are noted. Further clinical evaluation is advised. ORAL CAVITY: Partially obscured by dental amalgam but normal as visualized. PHARYNX, LARYNX AND TRACHEA: Patent and normal. No prevertebral soft tissue swelling. SUPERFICIAL SOFT TISSUES: Normal. No lymphadenopathy or neck mass. THORACIC INLET/VISUALIZED UPPER CHEST: Normal. SKELETAL: Age appropriate degenerative changes. CHEST: MEDIASTINUM: Aorta: The thoracic aorta is normal. Coronary arteries: Normal. Heart/other: The heart is not enlarged. Lymph nodes: No mediastinal or hilar adenopathy. LUNGS: Groundglass appearing area is seen in the left upper lobe which is unchanged from previous exa mination. This may represent a nodule or scarring. Emphysematous bulla is seen in the left lung base. Dependent atelectatic changes are noted. 2 Tiny nodule is seen in the right upper lobe measuring 3 m m. No pulmonary masses. No infiltrates or effusions. No pneumothorax. VISUALIZED UPPER ABDOMEN: Left kidney cyst measuring 3.7 cm. Otherwise, the visualized upper abdomen is normal. MUSCULOSKELETAL: Soft tissues: The superficial soft tissues are normal. Bones: Age appropriate degenerative changes of the spine. IMPRESSION: Prominent both tonsils with minimal enhancement. Clinical further evaluation advised. Groundglass nodule in the left apical area unchanged from previous examination. 3-6 months Follow-up advised. 2 tiny nodules in the right upper lobe measuring 3 mm. Emphysematous bulla in the left lung base. Reviewed, dictated and finalized at location A. IMPRESSION: Prominent both tonsils with minimal enhancement. Clinical further evaluation ad vised. Groundglass nodule in the left apical area unchanged from previous examination. 3-6 months Follow-up advised. 2 tiny nodules in the right upper lobe measuring 3 mm. Emphysematous bulla in the left lung base.
[2025-02-09 09:22] LABS: Estimated Glomerular Filt Rate 39
--- OUTSIDE RECORDS SUMMARY | 2025-02-09 09:27 | XMS_ITS | Clinical Summary ---
Author Organization [facility] Kobe Menezes Address [address] [place] [address] Care Team Providers Care Rabies Inspector Name Role Phone Elias Francisco MD Primary Care Provider [phone] Allergies No known active allergies Medications Symbicort 160-4.5 mcg/actuation HFA Aerosol Inhaler Take 2 Puffs by inhalation. 12/17/2022 Active Active Problems No known active problems Encounters Date Type Department Care Team Description 11/10/[address] [facility] Oncology and Hematology - Francisco [address] [place] [address] Jamaal Bunch MD from Last [...] Sign Reading Time Taken Comments Blood Pressure 168/99 11/06/2024 9:18 AM CDT Pulse 86 11/06/2024 9:16 AM CDT Temperature 35.6 C (96.1 F) 11/06/2024 9:16 AM CDT Respiratory Rate 15 11/06/2024 9:16 AM CDT Oxygen Saturation 97% 11/06/2024 9:16 AM CDT Inhaled Oxygen Concentration - - Weight 69.9 kg (154 lb) 11/06/2024 9:16 AM CDT Height 177.8 cm (5' 10) 04/08/2023 8:40 AM CDT Body Mass Index 22.1 04/08/2023 8:40 AM CDT Plan of Treatment Upcoming Encounters Date Type Department Care Team (Late st Contact Info) Description 02/16/2025 11:45 AM CDT Office Visit [facility] Oncology and Hematology - Francisco [address] [facility] [address] [place] [address] Jamaal Bunch MD [address] [facility] [address] [place] [address] Health Maintenance Due Date Last Done Comments DTAP/TDAP/TD VACCINES (1 - Tdap) 1983 COLORECTAL SCREENING 2009 Colorectal Cancer Screening 2009 FIT-DNA Q 3 years 2009 FIT/FOBT Q 1 year 2009 Flex Sig/CT Colonography Q 5 years 2009 ZOSTER VACCINE (1 of 2) 2014 INFLUENZA VACCINE (#1) 2024 07/05/2019 RSV VACCINE (60+ or ) (1 - Risk 60-74 years 1-dose series) 2024 HEPATITIS B VACCINES Aged Out No long er eligible based on patient's age to complete this topic Insurance [employer] [facility] [employer] [id number] Care Teams Rabies Inspector Relationship Specialty Start Date End Date Elias Francisco MD [address] [address] PCP - General Internal Medicine 03/07/23
--- OUTSIDE RECORDS SUMMARY | 2025-02-09 09:27 | XMS_ITS | Clinical Summary ---
Author Organization [facility] Address [address] [place] [address] Care Team Providers Care Android Platform Developer Name Role Phone Unavailable Primary Care Provider Unavailabl e Source Comments [facility],non-owned Affiliates and Associated Physician Practices is amultiple site organization consisting of ambulatory clinics and hospital sitesin [place], [place]. This disclosure is being madepursuant to the Care Everywhere program and may not contain all information available regarding this patient. Last updated 18.[facility] [employer] Allergies No known active allergies Immunizations Immunization Administration Dates Next Due INFLUENZA VACCINE, QUADR. (F LUZONE; FLULAVAL; FLUARIX; AFLURIA QUADRIVALENT; 6MO+), 0.5 ML (IIV4) 07/05/2019 Social History Tobacco Use Types Packs/Day Years Used Date Smoking Tobacco: Never Assessed Sex and Gender Information Value Date Recorded Sex Assigned at Not on file Legal Sex Male 12:22 PM [employer]BR[employer] Gender Identity Not on file Sexual Orientation [...] VACCINE (1 - 2023-2 5 season) 2024 DEPRESSION SCREENING 08/26/2024 INFLUENZA VACCINE (Season Ended) 2025 07/05/20 19 Respiratory Syncytial Virus (RSV) Vaccine Pt: or [...] patient's age to complete this topic Insurance [facility]
--- OUTSIDE RECORDS SUMMARY | 2025-02-09 09:27 | XMS_ITS | Data Portability ---
Author Organization [facility] [email or web address], Main Office Address [address] [place] [address] Assessment No assessment recorded. Plan of Treatment Reminders Order Date Submit Date Provider Last Modified By Organization Details Last Modified Time Details Appointments Establish ed Patient 15 2024 03:30P M Elias Francisco MD Not available Not available Not available Lab lipid panel, serum [address] (Lab), [address] [place], [address], 02/05/2025 16:37:55 PSA, total, serum or plasma [email or web address] (Lab), [address] [place], [address], 02/05/2025 16:37:54 CMP, serum or plasma [address] (Lab), [address] [place], [address], 02/05/2025 16:37:55 CBC [email or web address] (Lab), [address] [place], [address], 02/05/2025 16:37:54 Referral speech therapy referral 2022 023 [email or web address] [facility], [address] [place], [address], 08/07/2023 08:10:51 health home referral - Speech to see for swallow 2022 023 [email or web address] [facility] ([facility]), [address], [place], [address], 07/17/2023 12:37:12 Procedures None recorded. Surgeries None recorded. Imaging None recorded. Medication Orders budesonid e-formote rol HFA 160 mcg-4.5 mcg/actua tion aerosol inhaler 2024 025 [facility]/Pharmacy #[id number], [address], [place], [address], 09/01/2024 16:25:10 albuterol sulfate HFA 90 mcg/actua tion aerosol inhaler 2024 025 [facility]/Pharmacy #[id number], [address], [place], [address], 09/01/2024 16:25:10 Zithromax Z-Lemuel 250 mg tablet 2024 025 [facility]/Pharmacy #[id number], [address] [place], [address], 09/01/2024 16:25:09 Symbicort 160 mcg-4.5 mcg/actua tion HFA aerosol inhaler 2023 024 [facility]/Pharmacy #[id number], [address], [place], [address], 11/08/2023 10:54:48 escitalop jaylon 10 mg tablet 2022 023 [email or web address] [email or web address] [facility]/Pharmacy #[id number], [address], [place], [address], 03/03/2024 16:41:38 escitalop jaylon 10 mg tablet 2022 023 [email or web address] [email or web address] [facility]/Pharmacy #[id number], [address] [place], [address], 03/03/2024 16:41:38 Patient TargetsNo targets recorded. Patient Instructions Encounter Date Encounter Id Patient Instructions Last Modified By Organization Details Last Modified Time 07/10/2023 [id number] risk assessment* [email or web address] Not availabl e 07/10/2023 17:19:29 INFLUENZA VACCIN E Recommended today, but patient declined TD/TDAP Patient will get at local pharmacy/health department PNEUMONIA VACCINE Recommended at age 64 SHINGLES Patient will get at local pharmacy/health department PSA recommended COLORECTAL SCREENING No screening necessary patient is up to date DEPRESSION SCREENING Negative BMI Appropriate NUTRITION PHYSICAL ACTIVITY Need more exercise/physical activity ALCOHOL USE No alcohol use TOBACCO USE non smoker LUNG CANCER SCREENING SEXUALLY ACTIVE HEPATITIS C SCREENING Not indicated GLUCOSE SCREENING up to date LIPID SCREENING up to date [email or web address] Not available 07/10/2023 15:55:29 Reason for Referral Health Home Referral for [facility] malignant neoplasm of tonsil Speech to see for swallow Referring Physician: Elias Francisco, Internal Medicine, Encounter Date: 07/10/2023 Referring Physician: García Francicso, Internal Medicine, Encounter Date: 07/10/2023 Results Created Date Observation Date Name Description Value Unit Range Abnormal Flag Note LastModifiedBy Organization Detail LastModifiedTime 04/28/20 24 04/28/2024 CT, neck, soft tissu e, w/ contr ast No observ ation record ed. BARCODE Not Available 2023 18:56:16 11/20/19 25 10/27/2024 CT, neck, soft tissu e, w/ contr ast No observ ation record ed. [email or web address] Not Available 2024 12:48:29 Result Notes None recorded. Problems Name Problem SNOMED Code Status Onset Date Resolution Date Notes Provider Name and Address Organization Details Recorded Time Asthma 251523211 Active Not Available [employer] 3 14:46:53 Upper respirator y infection 72292464 Completed Elias Francisco MD [address] [facility], [facility] [address], [place], [address] , [facility] [employer] [facility] 5 16:22:43 Influenza 8707476 Completed Not Available [employer] 3 14:46:53 Stress 13656880 Active Not Available [facility] 3 14:46:54 Mass of neck 116142018 Active 2022 Stephanie valerio, RMA null, [place] [facility] 3 11:26:59 Primary malignant neoplasm of tonsil 402815752 Active 2022 Stephanie De Jesusa n, RMA null, [place] [facility] 3 11:26:57 Hearing loss 89872712 Active 2022 Stephanie Bryantbea n, RMA null, [place] [facility] 3 11:27:01 Dysphagia 65426631 Active 2022 Stephanie De Jesusa n, RMA null, [place] [facility] 3 11:27:03 Depressive disorder 04183726 Active 2022 Stephanie Patel n, RMA null, [place] [facility] 3 11:27:05 Cough 78042139 Active 2023 Marleny Monsivais LPN null, [place] [facility] 4 15:33:05 Kidney disease 32763838 Active 2023 Elias Francisco MD [address], [place], [address] , [place] [facility] 4 10:50:48 Abnormal weight loss 194296203 Active 2023 Elias Francisco MD [address], [place], [address] , [place] [facility] 4 10:53:29 Anemia 003356025 Active 2023 Elias Francisco MD [address], [place], [address] , [place] [facility] 4 10:55:09 Upper respirator y infection 53961211 Active 2024 Elias Francisco MD [address], [place], [address] , [place] [facility] 5 16:22:43 Problem Notes None recorded. Medical Equipment None Reported. Allergies Allergen ID Allergen Name Allergen Category Reaction Reaction Severity Criticality Documentation Date Start Date Code Code System Note Provider Name and Address Organization Details Recorded Time 79799 Product containin g penicilli n (product) medicatio n anaphylax is Not available Not available 10/24/2022 71587 8001 SNOMED Not Available [facility] 3 14:49:01 Medications Name Sig Start [...] completed Not Available Not Available Not Available amlodipine 5 mg tablet TAKE 1 TABLET BY MOUTH EVERY DAY active Not Available Not Available No t Available Tamiflu 75 mg capsule Take 1 [...] sulfate HFA 90 mcg/actuati on aerosol inhaler INHALE 2 PUFFS BY MOUTH EVERY 4 HOURS NEEDED 2024 active ODALYS 5 NOV 5 ok to rf Not Available Not Available Not Available doxycycline hyclate 100 mg tablet 05/11 completed Not Available Not Available Not Available amoxicillin 875 mg-potassiu m clavulanate 125 mg tablet TAKE 1 TABLET BY MOUTH TWICE A DAY FOR 7 DAYS active Not Available Not Available No t Available oxycodone 5 mg tablet TAKE 1 [...] mcg/actuati on aerosol inhaler INHALE 2 PUFFS INTO THE LUNGS TWICE A DAY FOR 30 DAYS active Not Available Not Available No t [...] Updated DateTime 5 175.26 cm 22.4 kg/m2 17938.0 4 g 97.5 [degF] 110 /min 98 % 98 % 128 mm[Hg] 98 mm[Hg] Stephanie gao [employer] [facility] 5 15:36:29 Date Recorded Body height Body mass index (BMI) Body weight Body temperature Heart rate Oxygen saturation Oxygen saturation in Arterial blood by Pulse oximetry Systolic blood pressure Diastolic blood pressure Provider Name and Address Organization Details Last Updated DateTime 4 175.26 cm 20.2 kg/m2 61095.1 5 g 98.1 [degF] 84 /min 99 % 99 % 132 mm[Hg] 88 mm[Hg] Millie larson [facility] [employer] 4 10:12:21 Date Recorded Body height Body mass index (BMI) Body weight Body temperature Heart rate Oxygen saturation Oxygen saturation in Arterial blood by Pulse oximetry Systolic blood pressure Diastolic blood pressure Provider Name and Address Organization Details Last Updated DateTime 4 175.26 cm 21 kg/m2 92129.1 2 g 97.6 [degF] 94 /min 96 % 96 % 140 mm[Hg] 84 mm[Hg] Stephanie gao [employer] [facility] 4 16:38:03 Date Recorded Body height Body mass index (BMI) Body weight Body temperature Oxygen saturation Oxygen saturation in Arterial blood by Pulse oximetry Heart rate Systolic blood pressure Diastolic blood pressure Provider Name and Address Organization Details Last Updated DateTime 3 175.26 cm 22.3 kg/m2 72201.4 5 g 98 [degF] 97 % 97 % 108 /min 122 mm[Hg] 62 mm[Hg] Merlin Walter [facility] [employer] 3 15:14:55 Date Recorded Body height Body mass index (BMI) Body weight Body temperature Heart rate Oxygen saturation Oxygen saturation in Arterial blood by Pulse oximetry Systolic blood pressure Diastolic blood pressure Provider Name and Address Organization Details Last Updated DateTime 3 175.26 cm 22.4 kg/m2 14799.0 4 g 97.7 [degF] 98 /min 98 % 98 % 138 mm[Hg] 80 mm[Hg] Stephanie gao, [place] [facility] [place] [employer] 3 11:26:40 Social History Question Answer Notes LastModified by [employer] Details LastModified Time Tobacco Smoking Status Never Smoker Not Available [facility] 10/24/2022 14:44:43 Do You Have An Advance Directive? Yes [id number] Information not available 10/24/2022 What Is Your Level Of Caffeine Consumption? Moderate [id number] 026 Information not available 10/24/2022 How Much Tobacco Do You Chew? 5+/day [id number] 026 Information not available 10/24/2022 What Type Of Diet Are You Following? REGULAR [id number] 026 Information not available 10/24/2022 Which Illicit Or Recreational Drugs Have You Used? None [id number] 026 Information not available 10/24/2022 What Was The Date Of Your Most Recent Tobacco Screening? 12/30/2020 [id number] 026 Information not available 10/24/2022 Do You Use Sunscreen Routinely? Yes [id number].[id number] 026 Information not available 10/24/2022 Have You Recently Traveled Abroad? No [id number] 026 Information not available 10/24/2022 Sex: Unknown Functional Status Question Answer Note LastModified by [employer] Details LastModified Time What is your level of alcohol consumption? 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 Moderate [id number].[id number] 026 Information not available 10/24/2022 Mental Status None recorded. Family History Relationship Description Onset Age of this Age Resolved Age Notes LastModified by Organization Details LastModified Time Maternal Grandmother Essential hypertension [id number] Not available 10/24/2022 14:44:56 Father Malignant neoplastic disease [id number].010 [id number] Not available 10/24/2022 14:44:56 Paternal Uncle Malignant neoplastic disease [id number].485 [id number] Not available 10/24/2022 14:44:56 Paternal Aunt Malignant neoplastic disease [id number].371 [id number] Not available 10/24/2022 14:44:56 Medical History Condition Response ASTHMA Y Past Encounters Encounter ID Performer Location Encounter Start Date Encounter Closed Date Diagnosis/Indication Diagnosis SNOMED-CT Code Diagnosis ICD10 Code Diagnosis Note [id number] Elias Francisco MD [facility] Internal Med [facility] [address] [facility] [place] [address] 12/30/2020 00:00:00 12/30/2020 16:10:16 [id number] Elias Francisco MD [facility] Internal Med [address] [place] [address] 05/11/2021 00:00:00 05/11/2021 17:13:01 [id number] Elias Francisco MD [facility] Internal [facility] [address] [facility] [place] [address] 06/13/2021 00:00:00 06/13/2021 12:28:05 [id number] Elias Francisco MD [facility] Internal [place] [id number] [facility] [place] [address] 03/20/2022 00:00:00 03/20/2022 16:55:19 [id number] Elias Francisco MD [facility] Internal Med [address] [place] [address] 01/09/2023 16:27:42 01/09/2023 17:12:54 Asthma 601208599 J45.909 under control Adult [facility] th examination 726765982 Z00.00 Colonoscop y- 08/2020 w/Dr. Ruiz on- not in chartA- neededFLU- 2020COVID- Has not had Mass of neck 242267953 R 22.1 Screening for malignant neoplasm of prostate 990307358 Z12.5 [id number] Elias Francisco MD [facility] Internal [facility] [address] [facility] [place] [address] 07/10/2023 14:59:35 07/10/2023 15:59:33 Asthma 938962905 J45.909 under control Adult [facility] examination 167915500 Z00.00 Colonoscop y- 08/2020 w/Dr. Ruiz on- not in [facility] VI- Has not had Primary ma lignant neoplasm of tonsil 926684782 C09.9 to get f/u CT scan Tube feeding diet 881526 07 Z76.89 getting 350 ml 4 x a day Hearing loss 09843018 H9 1.90 he will discuss with oncology about potential side effect Dysphagia 96600107 R13.1 0 Depressive disorder 3548 9007 F32.A start meds Depression screening 171 067341 Z13.31 [id number] Elias Francisco MD [facility] Internal [facility] [address] [facility] [place] [address] 08/09/2023 11:16:51 08/09/2023 11:55:12 Primary malignant neoplasm of tonsil 732851026 C09.9 to get f/u CT scan in 09/17 Tube feeding diet 437990 07 Z76.89 no more needed Hearing loss 79653587 H9 1.90 seeing ENT Dysphagia 41599318 R13.1 0 MUCH BETTER Depressive disorder 3548 9007 F32.A much [id number] Elias Francisco MD [facility] [address] [facility] [place] [address] 11/08/2023 10:03:01 11/08/2023 11:05:07 Asthma 714162445 J45.909 under control Adult [facility] examination 818763237 Z00.00 Colonoscop y- 08/2020 w/Dr. Ruiz on- not in [facility] VID- Has not had Primary ma lignant neoplasm of tonsil 011173274 C09.9 going to get PET Hearing loss 86698766 H9 1.90 seen ENT ,has tubes Dysphagia 61847623 R13.1 0 better Depressive disorder 3548 9007 F32.A meds help Kidney disease 67944024 N08 to see nephrology Abnormal weight loss 267 290274 R63.4 to restart tube feeding once a day Anemia 851476713 D64.9 on iron and b12 [id number] Elias Francisco MD [facility] Internal [facility] [address] [facility] [place] [address] 03/03/2024 16:28:35 03/04/2024 11:22:39 Asthma 830450912 J45.909 under control Adult [facility] examination 761497098 Z00.00 Colonoscop y- 08/2020 w/Dr. Ruiz on- not in chartPSA-F CORNELIUS- 2020COVID- Has not had Primary ma lignant neoplasm of tonsil 716006556 C09.9 no recurrence Hearing loss 04886159 H9 1.90 seen ENT ,has tubes Dysphagia 73720980 R13.1 0 better Depressive disorder 3548 9007 F32.A meds help Kidney disease 05783868 N08 seen nephrology Abnormal weight loss 267 028093 R63.4 improving Anemia 732531098 D64.9 advised to take iron and b12 [id number] Elias Francisco MD [facility] Internal Med [facility] [address] [facility] [place] [address] 09/01/2024 15:26:58 09/01/2024 16:26:30 Asthma 242044577 J45.909 under control Adult [facility] examination 625419162 Z00.00 Colonoscop y- 08/2020 w/Dr. Ruiz on- not in chartPSA- dueFLU- 2019- Declined OVID- Has not had Primary ma lignant neoplasm of tonsil 431341285 C09.9 no recurrence Hearing loss 80136966 H9 1.90 seen ENT ,has tubes Dysphagia 99918116 R13.1 0 improved Depressive disorder 3548 9007 F32.A meds help Kidney disease 48536157 N08 seen nephrology Anemia 946533990 D64.9 labs Screening for malignant neoplasm of prostate 095133982 Z12.5 Hyperlipid emia screening 964853143 Z13.220 Upper resp iratory infection 56802585 J06.9 Health Concerns Section Related Observation LastModified by Organization Detai ls LastModified Time None Recorded Concern Status LastModified by Organization Details LastModified Time None Recorded Advance Directives Directive Y: Payers Insurance Date Sequence Insurance Name Policy Number Policy Banegas Covered Member ID Banegas Member ID Guarantor Name 09/14/2024 1 [facility] [id number] Claude Spears [id number] Claude Spears 09/01/2024 1 [facility] (O) [id number] Claude Spears [id number] Claude Spears Notes Date Note Type Note [...] all the times Elias Francisco MD [address], [place], [address], [facility] [employer] 07/10/2023 17:19:32 08/09/2023 text/html He is here [...] all the times Elias Francisco MD [address], [place], [address], [employer] 08/09/2023 11:53:47 11/08/2023 text/html He is here [...] iron and b12 Elias Francisco MD [address], [place], [address], [employer] 11/08/2023 10:57:30 03/03/2024 text/html He is here [...] iron and b12 Elias Francisco MD [address], [place], [address], [employer] 03/03/2024 17:06:54 09/01/2024 text/html He is here [...] iron and b12 Elias Francisco MD [address] [facility], [facility] [address], [place], [address], [place] [facility] [employer] [facility] 09/01/2024 16:26:24
== END 2025-02-09 08:54 | disposition home or self-care (01) ==
PROVIDERS: PCP Internal Medicine; Visit Provider Internal Medicine Hematology & Oncology
DX: R91.8 Other nonspecific abnormal finding of lung field (principal); C09.9 Malignant neoplasm of tonsil, unspecified; J43.9 Emphysema, unspecified
CPT/HCPCS: 70491; 71260; Q9967

== ENCOUNTER 2025-02-16 11:25 | Outpatient (CLI) | payer OTHER, SELFPAY ==
[2025-02-16 11:40] LABS: Basophils Percent Auto 0.5 % (0.2-1.2); Eosinophils Absolute Auto 0.2 K/mm3 (0-0.3); Eosinophils Percent Auto 2.7 % (0-4.4); Hematocrit 40.4 % (42.0-52.0); Hemoglobin 13.3 g/dL (14.0-18.0); Immature Granulocyte Absolute 0.01 K/mm3 (0.00-0.031); Immature Granulocyte Percent A 0.2 % (0-0.5); Lymphocytes Absolute Auto 0.91 K/mm3 (0.9-3.2); Lymphocytes Percent Auto 16.1 % (18.3-44.2); Mean Corpuscular HGB Conc 32.9 g/dl (32-36); Mean Corpuscular Volume 91.2 fl (80-100); Mean Platelet Volume 9.9 fl (7.4-10.4); Monocytes Absolute Auto 0.5 K/mm3 (0.1-0.6); Monocytes Percent Auto 8.7 % (2.6-8.5); Neutrophils Absolute Auto 4.1 K/mm3 (1.3-6.7); Neutrophils Percent Auto 71.8 % (45.5-73.1); Platelet Count Result 200 k/mm3 (150-375); Red Blood Count 4.43 M/mm3 (4.6-6.20); Red Cell Distribution Width 12.1 % (11.5-14.5); White Blood Count 5.7 K/mm3 (4.5-10.0)
[2025-02-16 11:45] LABS: Blood Urea Nitrogen 18 mg/dL (8-26); Carbon Dioxide 19 mmol/L (22-30); Chloride 104 mmol/L (98-109); Estimated Glomerular Filt Rate 41; Glucose 99 mg/dL (70-105); Ionized Calcium (POC) 1.25 mmol/L (1.11-1.31); Potassium 3.6 mmol/L (3.5-4.9); Sodium 140 mmol/L (138-146)
[2025-02-16 16:35] LABS: Alanine Aminotransferase 15 U/L (6-50); Albumin Level 4.1 g/dL (3.5-5.1); Alkaline Phosphatase 110 U/L (38-126); Anion Gap 10 mmol/L (4-12); Aspartate Amino Transferase 33 U/L (17-59); Bilirubin,Total 0.4 mg/dL (0.2-1.3); Blood Urea Nitrogen 17 mg/dL (9-20); Calcium 9.4 mg/dL (8.4-10.2); Carbon Dioxide 20 mmol/L (22-30); Chloride 107 mmol/L (98-107); Estimated Glomerular Filt Rate 43; Glucose 98 mg/dL (65-110); Potassium 3.8 mmol/L (3.4-5.0); Sodium 137 mmol/L (137-145); Total Protein 6.9 g/dL (6.3-8.2)
== END 2025-02-16 11:26 | disposition home or self-care (01) ==
LOC: ANHLAB 11:27
PROVIDERS: PCP Internal Medicine; Visit Provider Internal Medicine Hematology & Oncology
DX: C09.9 Malignant neoplasm of tonsil, unspecified (principal)
CPT/HCPCS: 36415; 80047; 80053; 85025

== ENCOUNTER 2025-06-14 08:41 | Outpatient (CLI) | payer OTHER, SELFPAY ==
--- NOTE | ~2025-06-14 | CT_ITS ---
EXAMINATION: CT soft tissue neck chest w DATE: 06/14/2025 09:12 INDICATION: Tonsillar cancer. TECHNIQUE: Computed tomography (CT) of the neck and chest was performed with 75 mL Omnipaque 350 intravenous contrast. Automated exposure control and iterative reconstruction technique were employed. The dose-length product was 639.23 mGy-cm. COMPARISON: CT neck and chest 02/09/2025, PET/CT 11/19/2023, neck CT 04/28/24 FINDINGS: CT NECK: There is fat stranding in the neck, consistent with changes of radiation therapy. There are no pathologically enlarged lymph nodes. There is plaque in the proximal internal carotid arteries with 0% stenosis relative to normal distal artery lumen diameters. There is mild cervical spondylosis. CT CHEST: There is mild emphysema. There is a 17 mm groundglass opacity in left lung upper lobe with 4 mm solid component. There are 3 mm and 4 mm nodules in right lung upper lobe without change, likely benign. No pleural effusion. The heart size is normal. No pericardial effusion. There is a 4.1 cm hemorrhagic cyst in left kidney. There is mild chronic height loss of multiple vertebral bodies. There is mild thoracic spondylosis. IMPRESSION: 1. No evidence of metastatic disease. 2. 17 mm part-solid nodule with 4 mm solid component in left lung upper lobe, stable from 02/09/25 and worsened from 04/28/24, probably benign. Noncontrast low- dose chest CT is recommended in 6 months. Reviewed, dictated and finalized at location E. IMPRESSION: 1. No evidence of metastatic disease. 2. 17 mm part-solid nodule with 4 mm solid component in left lung upper lobe, s table from 02/09/25 and worsened from 04/28/24, probably benign. Noncontrast low-d ose chest CT is recommended in 6 months.
[2025-06-14 09:08] LABS: Estimated Glomerular Filt Rate 44
--- OUTSIDE RECORDS SUMMARY | 2025-06-14 09:09 | XMS_ITS | Clinical Summary ---
Author Organization [facility] Address [address] [place] [address] Care Team Providers Care Agent Based Modeler Name Role Phone Elias Francisco MD Primary Care Provider [phone] Allergies No known active allergies Medications Symbicort 160-4.5 mcg/actuation HFA Aerosol Inhaler Take 2 Puffs by inhalation. 12/17/2022 Active Active Problems No known active problems Encounters Date Type Department Care Team Description 06/08/2025 External Device Data STL ABSTRACTION Provider, Abstract 04/13/2025 External Device Data STL ABSTRACTION Provider, Abstract from Last 3 Months Family History Relation [...] Sign Reading Time Taken Comments Blood Pressure 156/97 02/16/2025 11:43 AM CDT Pulse 77 02/16/2025 11:41 AM CDT Temperature 36.4 C (97.6 F) 02/16/2025 11:41 AM CDT Respiratory Rate 15 02/16/2025 11:41 AM CDT Oxygen Saturation 97% 02/16/2025 11:41 AM CDT Inhaled Oxygen Concentration - - Weight 71 kg (156 lb 9.6 oz) 02/16/2025 11:41 AM CDT Height 177.8 cm (5' 10) 04/08/2023 8:40 AM CDT Body Mass Index 22.47 04/08/2023 8:40 AM CDT Plan of Treatment Upcoming Encounters Date Type Department Care Team (Late st Contact Info) Description 06/21/2025 3:30 PM CDT Office Visit [facility] Oncology and Hematology - [place] [address] [facility] [address] [place] [address] Jamaal Bunch MD [address] [facility] [address] [place] [address] Health Maintenance Due Date Last Done Comments DTAP/TDAP/TD VACCINES (1 - Tdap) 1983 COLORECTAL SCREENING 2009 Colorectal Cancer Screening 2009 FIT-DNA Q 3 years 2009 FIT/FOBT Q 1 year 2009 Flex Sig/CT Colonography Q 5 years 2009 ZOSTER VACCINE (1 of 2) 2014 RSV VACCINE (60+ or ) (1 - Risk 60-74 years 1-dose series) 2024 INFLUENZA VACCINE (#1) 2025 07/05/2019 Insurance Care Teams Agent Based Modeler Relationship Specialty Start Date End Date Elias [place] MD [address] [facility] [address] [place] [address] PCP - General Internal Medicine 03/07/23
--- OUTSIDE RECORDS SUMMARY | 2025-06-14 09:09 | XMS_ITS | Clinical Summary ---
Author Organization [facility] Address [address] [facility] [place] [address] Care Team Providers Care Demurrage Clerk Name Role Phone Unavailable Primary Care Provider Unavailabl e Source Comments [facility],non-owned Affiliates and Associated Physician Practices is amultiple site organization consisting of ambulatory clinics and hospital sitesin [place], [place], [place] and [place]. This disclosure is being madepursuant to the Care Everywhere program and may not contain all information available regarding this patient. Last updated 18.[facility] [email or web address] Allergies No known active allergies Immunizations Immunization Administration Dates Next Due INFLUENZA VACCINE, QUADR. 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
== END 2025-06-14 08:42 | disposition home or self-care (01) ==
PROVIDERS: PCP Internal Medicine; Visit Provider Internal Medicine Hematology & Oncology
DX: C09.9 Malignant neoplasm of tonsil, unspecified (principal)
CPT/HCPCS: 70491; 71260; Q9967

== ENCOUNTER 2025-06-21 15:01 | Outpatient (CLI) | payer OTHER, SELFPAY ==
[2025-06-21 15:13] LABS: Hematocrit 40.6 % (42.0-52.0); Hemoglobin 13.2 g/dL (14.0-18.0); Immature Granulocyte Percent A 0.2 % (0-0.5); Lymphocytes Absolute Auto 1.00 K/mm3 (0.9-3.2); Mean Corpuscular HGB Conc 32.5 g/dl (32-36); Mean Corpuscular Hemoglobin 30.1 pg (26-34); Mean Corpuscular Volume 92.7 fl (80-100); Nucleated Red Blood Cells Absolute Auto 0.000 K/mm3 (0.0-0.012); Nucleated Red Blood Cells Perc 0.0 % (0.0-0.2); Platelet Count Result 233 k/mm3 (150-375); Red Blood Count 4.38 M/mm3 (4.6-6.20); White Blood Count 6.2 K/mm3 (4.5-10.0)
[2025-06-21 15:16] LABS: Blood Urea Nitrogen 19 mg/dL (8-26); Carbon Dioxide 24 mmol/L (22-30); Chloride 106 mmol/L (98-109); Estimated Glomerular Filt Rate 39; Glucose 101 mg/dL (70-105); Ionized Calcium (POC) 1.21 mmol/L (1.11-1.31); Potassium 3.8 mmol/L (3.5-4.9); Sodium 141 mmol/L (138-146)
--- OUTSIDE RECORDS SUMMARY | 2025-06-21 15:30 | XMS_ITS | Encounter Summary ---
Author Organization [facility] Address [address] [place] [address] Care Team Providers Care Fire Alarm Inspector Name Role Phone Elias Francisco MD Primary Care Provider [phone] Reason for Referral * CT Scan (Routine) - Open Specialty Diagnoses / Procedures Referred By Contac t Referred To Contact Diagnoses Tonsillar cancer Lung mass Procedures CT SOFT TISSUE NECK CHEST W CONT CHG CT SOFT TISSUE NECK W/CONTRAST MATERIAL CHG DIAGNOSTIC COMPUTED TOMOGRAPHY THORAX W/CONTRAST Jamaal Bunch MD [address] [employer] [address] [place] [phone] Phone: tel: fax: [place] [phone] Referral ID Status Reason Start Date Expiration Date V isits Requested Visits Authorized [id number] Open [facility] CTS 06/21/2025 07/22/2026 1 1 Reason for Visit * Reason Comments Cancer Follow Up Encounter Details Date Type Department Care Team (Late st Contact Info) Description 06/21/2025 3:30 PM CDT Office Visit [facility] Oncology and Hematology [place] [address] [facility] [[email or web address] [address] [place] [address] Jamaal Bunch MD [address] [employer] [address] [place] [phone] Tonsillar cancer (Primary Dx); Lung mass Social History Tobacco Use Types Packs/Day Years [...] on file Sexual Orientation Not on file documented as of this encounter Last Filed Vital Signs Vital Sign Reading Time Taken Comments Blood Pressure 155/105 06/21/2025 3:17 PM CDT patients states this is about normal Pulse 84 06/21/2025 3:15 PM CDT Temperature 36.4 C (97.6 F) 06/21/2025 3:15 PM CDT Respiratory Rate 15 06/21/2025 3:15 PM CDT Oxygen Saturation 97% 06/21/2025 3:1 5 PM CDT Inhaled Oxygen Concentration - - Weight 71.6 kg (157 lb 12.8 oz) 06/21/2025 3:15 PM CDT Height - - Body Mass Index 22.64 04/08/2023 8:40 AM CDT documented in this encounter Progress Notes * Jamaal Bunch MD - 06/21/2025 3:24 PM CDT HEMATOLOGY / ONCOLOGY PROGRESS NOTE Patient Identification: Name: Claude Spears Age: 60 y.o. 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 Phil Sagastume on March 01, 2023. T2 N2b MX stage Zelda disease. CURRENT TREATMENT Surveillance TREATMENT HISTORY Concurrent chemoradiation therapy with cisplatin on April 10, 2023. Patient finished radiation therapy treatment on May 29, 2020 and chemotherapy treatment on May 22, 2023. SUBJECTIVE Patient is office for follow-up visit. He denies any chest pain and shortness of breath. Has been eating okay he has some tightness stiffness of the left side of his neck muscle occasionally. No other new complaints. Review of system Constitutional: Weight and appetite stable, denies any tiredness and fatigue HEENT: Patient did not mention sinus congestion, hearing or vision problems, denies any sore throatand mucositis respiratory: Patient did not mention cough, dyspnea, wheeze Cardiovascular: Patient did not mention chest pain, exertional chest pressure/discomfort, nausea, syncope, shortness of breath GI: Patient did not mention constipation, diarrhea, dsyphagia, reflux symptoms, vomiting, melena : Patient did not mention frequency, incontinence, urgency, complain of dysuria Integumentary system: no lymphadenopathy, sweats, flushing Musculoskeletal: Patient not mention: myalgia, arthralgia, occasional stiffness of the left neck muscles Neurological: Patient did not mention blurry or disturbed vision, numbness/weakness, dizziness Skin: No lumps, bumps or rashes. 12 review of system was reviewed Objective: Vital signs in last 24 hours: As per nursing note Exam: General appearance: alert, cooperative, no distress, appears stated age Head: normocephalic, without obvious abnormality, atraumatic Eyes: conjunctivae/corneas clear, EOM's intact Ears: normal external ear canals AU Nose: Nares normal. Septum midline. Mucosa normal. No drainage or sinus tenderness Throat: Lips, mucosa, and tongue normal. Teeth and gums normal Neck: supple, symmetrical, trachea midline. Lungs: clear to auscultation bilaterally Heart: regular rate and rhythm, S1, S2 normal, no murmur, click, rub or gallop Abdomen: soft, non-tender. Bowel sounds normal. No masses, No organomegaly Extremities: extremities normal, atraumatic, no cyanosis or edema Skin: Skin color, texture, turgor normal. No rashes or lesions Lymph nodes: No lymphadenopathy Neuro: No obvious focal deficit Exam as above PATH LABS Labs from April 08 showed WBC 6.1 hemoglobin 16.2 platelet 238,000 creatinine 0.8 Labs from May 06 showed WBC 6.1 hemoglobin 16.2 platelet 186,000 creatinine 3.7 BUN 62. Labs from May 17 showed WBC 2.6 hemoglobin 13 platelet 122,000 BUN 28 creatinine 1.7 Labs from June 06 showed potassium 5.0 creatinine 2.2 WBC 1.0 hemoglobin 11.4 platelet 140,000 neutrophils 24% Labs from July 23 showed creatinine 1.6 GFR 44 hemoglobin 8.6 Labs from July 23 showed vitamin B12 623 iron 51 saturation 19% ferritin 867 creatinine 1.6 with GFR 44 Labs from November 03 showed creatinine 2.2 GFR 31 hemoglobin 10.6 WBC 3.9 platelet 1 58,000 Labs from January 08 showed creatinine 2.1 GFR 32 hemoglobin 10.7 Labs from May 11 showed creatinine 1.8 GFR 39 hemoglobin 11.7 Labs from November 06 showed WBC 6.2 hemoglobin 13.5 platelet 232,000 creatinine 1.6 GFR 44 Labs from February 16 showed WBC 5.7 hemoglobin 13.3 platelet 200,000 creatinine 1.7 Labs from June 21 showed WBC 6.2 hemoglobin 13.2 platelet 233,000 creatinine 1.8 Assessment: Plan: There are no active problems to display for this patient. 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 Phil Sagastume on March 01, 2023. T2 N2b MX stage Zelda disease. Chemoradiation therapy started on April 10, 2023. Patient completed radiation therapy treatment onMay 29 and chemotherapy on May 22. Patient is clinically asymptomatic. There is no evidence of relapse of disease on my examination. CT scan's chest and neck done on June 14 showed no evidence of metastatic disease. There was left upper lobe lung nodule which is stable since January 2025. I will order repeat CT chest and neck in 4 months with follow-up. Patient will also follow-up with Dr. Phil Sagastume in 3 months for ENT examination. CKD. Stable creatinine. Anorexia and weight loss. Stable. Neck stiffness. I will prescribe Flexeril that he will use when he has next flareup of the neck stiffness muscle. I recommended regular massage of the left neck muscles as well. Follow-up in 4 months 06/21/2025 Jamaal Bunch MD documented in this encounter Plan of Treatment Upcoming Encounters Date Type Department Care Team (Late st Contact Info) Description 10/20/2025 3:45 PM TRAVEL OT Office Visit [facility] Oncology and Hematology - [place] [address] [facility] [address] [place] [address] Jamaal Bunch MD [address] [facility] [address] [place] [address] Scheduled Orders Name Type Priority Associated Diagnoses Orde r Schedule CBC WITH DIFFERENTIAL Lab Stat Tonsillar cancer Expected: 10/11/2025, Expires: 06/21/2026 COMPREHENSIVE METABOLIC PANEL Lab Stat Tonsillar cancer Expected: 10/11/2025, Expires: 06/21/2026 CT SOFT TISSUE NECK CHEST W CONT Imaging Routine Tonsillar cancer Lung mass Expected: 10/22/2025, Expires: 06/21/2026 documented as of this encounter Visit Diagnoses Diagnosis Tonsillar cancer- Primary Malignant neoplasm of tonsil Lung mass Swelling, mass, or lump in chest documented in this encounter Care Teams Fire Alarm Inspector Relationship Specialty Start Date End Date Elias [place] MD [address] [phone] PCP - General Internal Medicine 03/07/23 documented as of this encounter
[2025-06-21 16:36] LABS: Alanine Aminotransferase 14 U/L (6-50); Albumin Level 4.1 g/dL (3.5-5.1); Alkaline Phosphatase 129 U/L (38-126); Anion Gap 8 mmol/L (4-12); Aspartate Amino Transferase 22 U/L (17-59); Bilirubin,Total 0.5 mg/dL (0.2-1.3); Blood Urea Nitrogen 19 mg/dL (9-20); Calcium 9.1 mg/dL (8.4-10.2); Carbon Dioxide 23 mmol/L (22-30); Chloride 106 mmol/L (98-107); Estimated Glomerular Filt Rate 45; Glucose 98 mg/dL (65-110); Potassium 3.9 mmol/L (3.4-5.0); Sodium 137 mmol/L (137-145); Total Protein 6.7 g/dL (6.3-8.2)
--- OUTSIDE RECORDS SUMMARY | 2025-06-21 16:37 | XMS_ITS | Encounter Summary ---
Author Organization [facility] [employer] [facility] Address [address] [place] [address] Care Team Providers Care Bone Tender Name Role Phone Elias [place] MD Primary Care Provider [phone] Encounter Details Date Type Department Care Team (Late Contact Info) Description 06/16/2025 Orders Only [facility] Oncology and Hematology [place] [address] [place] [address] Jamaal Bunch MD [facility] [employer] [address] [place] [address] Social History Tobacco Use Types Packs/Day Years Used Date Smoking Tobacco: Never Smokeless Tobacco: Former Chew Quit: 04/26/2023 Alcohol Use Standard Drinks/Week Comments Yes 0 (1 standard drink = 0.6 oz pur e alcohol) rare Sex and Gender Information Value Date Recorded Sex Assigned at Not on file Legal Sex Male 9:20 AM CDT Gender Identity Not on file Sexual Orientation Not on file documented as of this encounter Plan of Treatment Upcoming Encounters Date Type Department Care Team (Late st Contact Info) Description 10/20/2025 3:45 PM TRASH COLLECTOR Office Visit [facility] Oncology and Hematology - [place] [address] [place] [address] Jamaal Bunch MD [facility] [employer] [address] [place] [phone] documented as of this encounter Procedures Procedure Name Priority Date/Time Associated Diagnosis Comments CT SOFT TISSUE NECK CHEST W CONT Routine 06/14/2025 9:27 AM CDT documented in this encounter Results * CT SOFT TISSUE NECK CHEST W CONT (06/14/2025 9:27 AM CDT) Anatomical Region Laterality Modality Neck Computed Tomogra phy Jamaal Bunch MD CT ORDERABLES Final Result documented in this encounter Visit Diagnoses Not on filedocumented in this encounter Care Teams Bone Tender Relationship Specialty Start Date End Date Elias [place] MD [address] [phone] PCP - General Internal Medicine 03/07/23 documented as of this encounter
--- OUTSIDE RECORDS SUMMARY | 2025-06-21 16:37 | XMS_ITS | Clinical Summary ---
Author Organization [facility] Address [address] [place] [address] Care Team Providers Care Line Driver Name Role Phone Unavailable Primary Care Provider Unavailabl e Source Comments [facility],non-owned Affiliates and Associated Physician Practices is amultiple site organization consisting of ambulatory clinics and hospital sitesin [place], [place], [place] and [place]. This disclosure is being madepursuant to the Care Everywhere program and may not contain all information available regarding this patient. Last updated 18.[facility] [email or web address] Allergies No known active allergies Immunizations Immunization Administration Dates Next Due INFLUENZA VACCINE, QUADR. 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
--- OUTSIDE RECORDS SUMMARY | 2025-06-21 16:37 | XMS_ITS | Clinical Summary ---
Author Organization [facility] Menezes Address [address] [place] [address] Care Team Providers Care Production Underwriter Name Role Phone Elias [place] MD Primary Care Provider [phone] Allergies No known active allergies Medications Symbicort 160-4.5 mcg/actuation HFA Aerosol Inhaler Take 2 Puffs by inhalation. 12/17/2022 Active amLODIPine (NORVASC) 10 mg tablet Take 10 mg by mouth daily. Active cyclobenzaprine (FLEXERIL) 10 mg tablet Take 1 Tablet (10 mg) by mouth 3 times daily as needed for Spasm. 30 Tablet 06/21/2025 Active Active Problems No known active problems Encounters Date Type Department Care Team Description 06/21/2025 3:30 PM CDT Office Visit [facility] Oncology and [facility] [address] [place] [address] Jamaal Bunch MD Tonsillar cancer (Primary Dx); Lung mass 06/16/2025 Orders Only [facility] Oncology [facility] [address] [place] [phone] Jamaal Bunch MD 06/08/2025 External Device Data STL ABSTRACTION Provider, [...] 12.8 oz) 06/21/2025 3:15 PM CDT Height 177.8 cm (5' 10) 04/08/2023 8:4 0 AM CDT Body Mass Index 22.64 04/08/2023 8:40 AM CDT Plan of Treatment Upcoming Encounters Date Type Department Care Team (Late st Contact Info) Description 10/20/2025 3:45 PM INVESTMENT ACCOUNTING CLERK Office Visit [facility] Oncology and Hematology - [place] [address] [facility] [address] [place] [address] Jamaal Bunch MD [address] [facility] [address] [place] [address] Health Maintenance Due Date Last Done Comments DTAP/TDAP/TD VACCINES (1 - Tdap) 1983 COLORECTAL SCREENING 2009 Colorectal Cancer Screening 2009 FIT-DNA Q 3 years 2009 FIT/FOBT Q 1 year 2009 Flex Sig/CT Colonography Q 5 years 2009 RSV VACCINE (60+ or ) (1 - Risk 50-74 years 1-dose series) 2014 ZOSTER VACCINE (1 of 2) 2014 Preventative Visit- Commercial 08/26/2024 INFLUENZA VACCINE (#1) 2025 07/05/2019 Procedures Procedure Name Priority Date/Time Associated Diagnosis Comments CT SOFT TISSUE NECK CHEST W CONT Routine 06/14/2025 9:27 AM CDT from Last 3 Months Results * CT SOFT TISSUE NECK CHEST W CONT (06/14/2025 9:27 AM CDT) Anatomical Region Laterality Modality Neck Computed Tomogra phy Jamaal Bunch MD CT ORDERABLES Final Result from Last 3 Months Insurance [employer] [id number] Care Teams Production Underwriter Relationship Specialty Start Date End Date Elias [place] MD [address] [phone] PCP - General Internal Medicine 03/07/23
== END 2025-06-21 15:02 | disposition home or self-care (01) ==
PROVIDERS: PCP Internal Medicine; Visit Provider Internal Medicine Hematology & Oncology
DX: C09.9 Malignant neoplasm of tonsil, unspecified (principal)
CPT/HCPCS: 36415; 80047; 80053; 85025